=== PATIENT | female | born 1950 | race Hispanic/Latino ===

== ENCOUNTER 2017-12-10 11:32 | Inpatient (IN) | payer MEDICARE, BC ==
[2017-12-10] MEDS ORDERED: Aspirin 325 mg EC Tablets PO STA (12:09)
[2017-12-10] MEDS ORDERED: Sodium Chloride 0.9% 250 ML IV STA (12:11)
[2017-12-10] MEDS ORDERED: Azithromycin 500MG/NS 250ml 500 MG/250 ML BAG IVPB STA (12:12)
[2017-12-10] MEDS ORDERED: cefTRIAXone 1 gm 1 GM/100 ML BAG IVPB STA (12:12)
--- NOTE | 2017-12-10 12:15 | ED PDOC ---
Arrival/HPI - General Chief Complaint: GI Problem Time Seen by Provider: 12/10/17 12:09 Historian: Patient - History of Present Illness Narrative History of Present Illness (Text): 12/10/17 12:11 pt p/w ~ 2 days onset of subjective fever, chills/mild sweats, + persistent coughing, non-productive, generalized malaise/fatigue worse with exertion; + very shortness of breath; pt also noted b/l leg swelling over the last few days ; pt states she felt overall much worse today; pt just [place] cruise [place]; pt thought she was just dehydrated and also excessive walking around the big ship; pt states no fall/trauma/sick contact; pt states no cp/palpitations, no abd pain, no appetite, some nausea, no vomiting, decr urination, no bowel changes, numbness/tingling; pt denied LOC; + dizziness/ lightheadedness; pt is here for further eval; pt's without other complaints. PCP: out of state/from [facility] multiple co-morbidities - renal failure/insufficiency; Hypertension/CHOL/ diabetes/cardiac surgery Time/Duration: < week (2-3 days) Symptom Onset: Sudden Symptom Course: Worsening Quality: Aching, Cramping, Throbbing Severity Level: Severe Activities at Onset: Other (was on [employer]) Context: Other (just [place] [employer] [place] Past Medical History - Provider Review Nursing Documentation Reviewed: Yes - Travel History Have you recently traveled outside [place] w/in the past 3 mons?: No - Past History Past History: Non-Contributing - Infectious Disease Hx of Infectious Diseases: None - Reproductive Menopause: Yes Currently : No - Cardiac Hx Cardiac Disorders: Yes Hx Hypertension: Yes Other/Comment: HEART TRANSPLANT - Pulmonary Hx Respiratory Disorders: No - Neurological Hx Neurological Disorder: No - HEENT Hx HEENT Disorder: No - Renal Hx Renal Disorder: Yes Hx Renal Failure: Yes - Endocrine/Metabolic Hx Endocrine Disorders: Yes Hx Diabetes Mellitus Type 2: Yes Other/Comment: THYROID DISEASE - Hematological/Oncological Hx Blood Disorders: No - Integumentary Hx Dermatological Disorder: No - Musculoskeletal/Rheumatological Hx Musculoskeletal Disorders: Yes Hx Unsteady Gait: Yes - Gastrointestinal Hx Gastrointestinal Disorders: No - Genitourinary/Gynecological Hx Genitourinary Disorders: No - Psychiatric Hx Psychophysiologic Disorder: Yes Hx Depression: Yes Hx Substance Use: No - Surgical History Other/Comment: HEART TRANSPLANT Family/Social History - Physician Review Nursing Documentation Reviewed: Yes Family/Social History: No Known Family HX Smoking Status: Former Smoker Hx Alcohol Use: No Hx Substance Use: No Hx Substance Use Treatment: No Allergies/Home Meds Allergies/Adverse Reactions: Allergies No Known Allergies Allergy (Verified 12/10/17 18:29) Home Medications: Home Meds Medication Instructions Recorded Confirmed Apixaban [Eliquis] 2.5 mg PO BID 12/10/17 12/10/17 Bumetanide [Bumex] 1 mg PO BID 12/10/17 12/10/17 Cyclosporine, Modified 50 mg PO BID 12/10/17 12/10/17 [Cyclosporine] Gabapentin [Neurontin] 300 mg PO DAILY 12/10/17 12/10/17 Insulin Detemir [Levemir] 12 units SC HS 12/10/17 12/10/17 Metoprolol Tartrate [Lopressor] 100 mg PO Q12 12/10/17 12/10/17 Prednisone [Akanksha] 5 mg PO DAILY 12/10/17 12/10/17 Sirolimus [Rapamune] 1 mg PO DAILY 12/10/17 12/10/17 Zolpidem [Ambien] 5 mg PO HS 12/10/17 12/10/17 metOLazone [Zaroxolyn] 5 mg PO MWF 12/10/17 12/10/17 Review of Systems - Review of Systems Constitutional: Fatigue. absent: Fevers Eyes: Normal ENT: Normal Respiratory: SOB, Cough, Wheezing. absent: Sputum Cardiovascular: JACKSON. absent: Chest Pain, Syncope Gastrointestinal: Nausea, Appetite Changes. absent: Abdominal Pain, Vomiting Genitourinary Female: Normal Musculoskeletal: Normal Skin: Normal Neurological: Dizziness Endocrine: Diaphoresis. absent: Polyuria Hemo/Lymphatic: Normal Psychiatric: Normal Physical Exam - Physical Exam Narrative Physical Exam (Text): 12/10/17 12:13 General: alert/awake, GCS = 15, oriented x 3, resting in bed, uncomfortable, cooperative, interactive; mild distress due to body pain/aches Head: NC/AT; mild bi-temporal wasting EYE: PERRLA, EOMI, sclera anicteric, no nystagmus, no photophobia; visual field intact b/l Facial: WNL Oral: uvula/tongue are midline, no exudate/lesions, no drooling/stridor, no dysphonia; fair dentitions; DRY oral mucosa NECK: intact ROM, no midline tenderness, no nuchal rigidity, no meningeal signs ; no step off Chest: coarse breath sounds/bibasiliar rales/rhonchi, faint wheezing b/l, + tachypenia, no accessory muscle use noted; no belly retractions noted Cardiac: +S1, +S2, no m/r/r, + tachycardia Abdominal: +BS, soft/nd/nt, well nourished patient; no masses/rebound/guarding/ rigidity; no horn's sign, no mcburney's point tenderness Extremities: intact ROM, strength 5/5 grossly intact in all limbs, neurovasc intact b/l; reflex +2/2; + 1-2/5 pitting edema/swelling b/l up to proximal b/l knee; no Regina's sign b/l BACK: no step off, no midline tenderness, NO crepitus, no gross deformities noted; Intact ROM SKIN: cap refill ~ 1 sec, no ulcerations, no petechiae, no rashes; no gross pallor NEURO: CNII-XII WNL, no facial asymmetries, no slurr speech, oriented x 3 NIH stroke scale ~ 0 Psych: normal insight, flat/depressed affect; follows command with ease Vital Signs Reviewed: Yes Vital Signs Temp Pulse Resp BP Pulse Ox 12/10/17 17:01 105 H 19 112/53 L 98 12/10/17 15:35 125 H 112/53 L 18 15:34 125 H 112/53 L 12/10/17 14:43 100 H 18 104/51 L 98 12/10/17 13:33 117 H 18 141/78 99 18 12:26 145/81 12/10/17 11:55 99.4 F 112 H 18 145/81 99 12/10/17 11:37 99.4 F 112 H 20 145/81 96 Temperature: Afebrile Blood Pressure: Hypertensive Pulse: Tachycardic Respiratory Rate: Normal Appearance: Positive for: Well-Appearing, Ill-Appearing, Uncomfortable. No: Non -Toxic, Comfortable, Unkept Pain Distress: Mild Mental Status: Positive for: Alert and Oriented X 3 - Systems Exam Head: Present: Atraumatic, Normocephalic Medical Decision Making ED Course and Treatment: 12/10/17 12:10 Impression: fever/coughing/weakness, body pain, worsening leg swelling i have consider all the differential diagnosis regarding pt's chief medical complaints/clinical findings, including but are not limited to: r/o infection, ? cardiopulm pathology A/P: fever/coughing/weakness/body pain, leg swelling - labs - iv - xray - acs eval - u/s - cultures - abx - supportive care - observe/reevaluation 1300 pt is currently comfortable pt is awaiting diagnostic results 12/10/17 13:[address] Abraham, drilling contractor medical service, would like ICU consult, and to consult ID, agrees with admission 12/10/17 13:[address] Healy ICU attending, who has been made aware of patient's condition and will see patient at bedside. 1400 because patient is from [employer] will contact Dr Carvalho and cancel admission with Dr Abraham 12/10/17 14:37 Dr. Healy evaluated patient at bedside, will accept patient to the ICU [address] Carvalho, made aware, agrees with admission, would like to consult dr Bazzi/dr carbajal/wilner 1530 Dr Abraham made aware of the cancelled admission under her service pt continues to feel weak and malaise pt is made aware of her medical results agrees with admission Re-evaluation Time: 13:36 Reassessment Condition: Improving,but remains with symptoms - Critical Care Critical Care Minutes: 45 minutes Critical Care Time: Excluding Proc Time Narrative Critical Care (Text): 12/10/17 15:33 critical care time: 45min, excluding procedure time, excluding time teaching residents/students/mid-level providers; including initial eval/diagnosis, diagnostic interpretation, re-eval, consultations, final disposition - Lab Interpretations Lab Results: 12/10/17 12:30 12/10/17 12:30 Lab Results 12/10/17 13:42: POC Glucose (mg/dL) 372 H 12/10/17 12:30: Sodium 142, Chloride 100, Potassium 3.2 L, Carbon Dioxide 27, Anion Gap 18, BUN 76 H, Creatinine 1.8 H, Est GFR ( Amer) 34, Est GFR ( Non-Af Amer) 28, Random Glucose 430 H*, Calcium 9.0, Magnesium 2.2, Total Bilirubin 1.5 H, AST 20, ALT 30, Alkaline Phosphatase 109, Lactate Dehydrogenase 473, Total Creatine Kinase 59, Troponin I 0.09, NT-Pro-B Natriuret Pep 89127 H, Total Protein 6.6, Albumin 3.7, Globulin 2.9, Albumin/ Globulin Ratio 1.3 12/10/17 12:30: pO2 38, VBG pH 7.35, VBG pCO2 50.0, VBG HCO3 27.6, VBG Total CO2 29.1 H, VBG O2 Sat (Calc) 77.8 H, VBG Base Excess 1.2, VBG Potassium 3.2 L, Sodium 139.0, Chloride 102.0, Glucose 458 H*, Lactate 1.7, FiO2 21.0, Venous Blood Potassium 3.2 L 12/10/17 12:30: PT 12.9 H, INR 1.12 H, APTT 36.8 H 12/10/17 12:30: WBC 14.9 H, RBC 4.47, Hgb 12.7, Hct 38.2, MCV 85.5, MCH 28.4, MCHC 33.2, RDW 14.2, Plt Count 291, MPV 9.4, Gran % 77.9 H, Lymph % (Auto) 16.5 L, [place] % (Auto) 4.9, Eos % (Auto) 0.5 L, Baso % (Auto) 0.2, Gran # 11.61 H, Lymph # (Auto) 2.5, [place] # (Auto) 0.7 H, Eos # (Auto) 0.1, Baso # (Auto) 0.03 I have reviewed the lab results: Yes Interpretation: Abnormal lab values (elevated GLUC, lactic acid, bun/creat, elevated WBCs) - RAD Interpretation Narrative RAD Interpretations (Text): 12/10/17 13:29 PRELIM U/S lower ext: NO DVT b/l 12/10/17 1400 chest: right sided pacemaker, pulm vasc congestion, sternotomy, blunting to right costrophrenic angle, cardiomeagly, ABNL xray HISTORY: fever/cough, on cruise ship, not feeling well COMPARISON: No prior. TECHNIQUE: Chest PA and lateral FINDINGS: LUNGS: Mild vascular congestive changes with mild bibasilar atelectasis and or infiltrates and small effusions. PLEURA: As above No pneumothorax apparent. CARDIOVASCULAR: Cardiomegaly. Sternotomy wires the again noted. Disconnected left-sided pacemaker leads. There is a bipolar right-sided pacemaker -defibrillator. Normal. OSSEOUS STRUCTURES: No significant abnormalities. VISUALIZED UPPER ABDOMEN: Normal. OTHER FINDINGS: None. IMPRESSION: Mild vascular congestive changes with mild bibasilar atelectasis and or infiltrates and small effusions. Radiology Orders: 12/10/17 12:09 CHEST TWO VIEWS (PA/LAT) [RAD] Stat DUPLEX LOWER EXTRM VEIN BILAT [US] Stat Color Strainer: Radiologist - EKG Interpretation EKG Interpretation (Text): 12/10/17 12:15 Sinus tach at 110 bpm, LAD, RBBB, left anterior fascicular block, inverted T In leads I/L, V1-2, + ectopy, no st changes, ABNL EKG; no old ekg to compare with 151 ekg: atrial fib at 120 BPM, LAD, RBBB, left anterior fascicular block, inverted T in leads I, R, L, V1-2, no st changes, ABNL EKG; no old ekg to compare with Interpreted by ED Physician: Yes Type: 12 lead EKG Comparison: No previous EKG avail. - Medication Orders Current Medication Orders: Albuterol/Ipratropium (Duoneb 3 Mg/0.5 Mg (3 Ml) Ud) 3 ml IH Q6H [facility] Last Admin: 12/10/17 15:37 Dose: 3 ml Apixaban (Eliquis) 5 mg PO BID [facility] PRN Reason: Protocol Last Admin: 12/10/17 18:29 Dose: 5 mg Cyclosporine (Sandimmune) 50 mg PO BID [facility] Last Admin: 12/10/17 18:28 Dose: 50 mg Furosemide (Lasix) 40 mg IVP Q12H [facility] Last Admin: 12/10/17 21:21 Dose: 40 mg MAR Blood Pressure Document 12/10/17 21:21 MPD (Rec: 12/10/17 21:21 MPD [id number]) Blood Pressure Blood Pressure (100/60-150/90) 107/71 IVP Administration Document 12/10/17 21:21 [facility] (Rec: 12/10/17 21:21 [id number] Charges for Administration # of IVP Administrations 1 Home Med (Home Med) 1 unit PO DAILY [facility] Insulin Human Regular 100 (units/ Sodium Chloride) 100 mls @ 2 mls/hr IV .Q24H PRN; Protocol; 2 UNITS/HR PRN Reason: TITRATE PER MD ORDER Last Titration: 12/10/17 23:00 Dose: 7 units/hr, 7 mls/hr Titration Intervention Document 12/10/17 23:00 [facility] (Rec: 12/10/17 23:22 [id number] Titration Intake Titration Intake 7 Cumulative Intake 23 Cumulative Intake (Rx) 23 Waste Amount 0 Container Volume 77 Titration Dosing Titration Dose 7 IV Rate 7 Intake/Decrease Increased Cumulative Dose 23 Ceftriaxone Sodium (Rocephin 1 Gram Ivpb) 1 gm in 100 mls @ 100 mls/hr IVPB DAILY [facility] PRN Reason: Protocol Azithromycin (Zithromax 500mg In Ns) 500 mg in 250 mls @ 167 mls/hr IVPB DAILY MONISHA PRN Reason: Protocol Methylprednisolone (Solu-Medrol) 40 mg IVP Q8H [facility] Last Admin: 12/10/17 21:53 Dose: 40 mg IVP Administration Document 12/10/17 21:53 [facility] (Rec: 12/10/17 21:53 [id number]) Charges for Administration # of IVP Administrations 1 Metoprolol Tartrate (Lopressor) 100 mg PO Q12H [facility] Last Admin: 12/10/17 15:34 Dose: Not Given Non-Admin Reason: BP Parameters Not Met MAR Pulse and Blood Pressure Document 12/10/17 15:34 EQ (Rec: 12/10/17 15:35 EQ [facility]) Pulse Pulse Rate (60-90) 125 Blood Pressure Blood Pressure (100/60-150/90) 112/53 Ondansetron HCl (Zofran Inj) 4 mg IVP Q6H PRN PRN Reason: Nausea/Vomiting Discontinued Medications Acetaminophen (Tylenol 325mg Tab) 650 mg PO STAT STA Stop: 12/10/17 12:12 Last Admin: 12/10/17 12:25 Dose: 650 mg MAR Pain/Vitals Document 12/10/17 12:25 EQ (Rec: 12/10/17 12:26 EQ [facility] [place]) Pain Reassessment Is This A Pain ReAssessment? No Sleep Is patient sleeping during reassessment? No Presence of Pain Presence of Pain Yes Albuterol/Ipratropium (Duoneb 3 Mg/0.5 Mg (3 Ml) Ud) 3 ml IH Q15M MONISHA Stop: 12/10/17 12:46 Last Admin: 12/10/17 13:40 Dose: 3 ml Aspirin (Ecotrin) 325 mg PO STAT STA Stop: 12/10/17 12:10 Last Admin: 12/10/17 12:27 Dose: 325 mg Cyclosporine (Sandimmune) 50 mg PO BID MONISHA Diltiazem HCl (Cardizem) 15 mg IVP STAT STA Stop: 12/10/17 15:26 Last Admin: 12/10/17 15:35 Dose: 15 mg IVP Administration Document 12/10/17 15:35 EQ (Rec: 12/10/17 15:35 EQ [facility] [place]) Charges for Administration # of IVP Administrations 1 MAR Pulse and Blood Pressure Document 12/10/17 15:35 EQ (Rec: 12/10/17 15:35 EQ [facility] [place]) Pulse Pulse Rate (60-90) 125 Blood Pressure Blood Pressure (100/60-150/90) 112/53 Furosemide (Lasix) 40 mg IVP STAT STA Stop: 12/10/17 12:10 Last Admin: 12/10/17 12:26 Dose: 40 mg MAR Blood Pressure Document 12/10/17 12:26 EQ (Rec: 12/10/17 12:26 EQ [facility] [place]) Blood Pressure Blood Pressure (100/60-150/90) 145/81 IVP Administration Document 12/10/17 12:26 EQ (Rec: 12/10/17 12:26 EQ [facility] [place]) Charges for Administration # of IVP Administrations 1 Sodium Chloride (Sodium Chloride 0.9%) 250 mls @ 999 mls/hr IV .Q16M STA Stop: 12/10/17 12:26 Last Admin: 12/10/17 12:29 Dose: 999 mls/hr eMAR Start Stop Document 12/10/17 12:29 EQ (Rec: 12/10/17 12:29 EQ [facility] [place]) Intravenous Solution Start Date 12/10/17 Start Time 12:29 Ceftriaxone Sodium (Rocephin 1 Gram Ivpb) 1 gm in 100 mls @ 200 mls/hr IVPB STAT STA PRN Reason: Protocol Stop: 12/10/17 12:41 Last Admin: 12/10/17 12:25 Dose: 200 mls/hr eMAR Start Stop Document 12/10/17 12:25 EQ (Rec: 12/10/17 12:25 EQ [facility] [place]) Intravenous Solution Start Date 12/10/17 Start Time 12:25 Azithromycin (Zithromax 500mg In Ns) 500 mg in 250 mls @ 167 mls/hr IVPB STAT STA PRN Reason: Protocol Stop: 12/10/17 13:41 Last Admin: 12/10/17 13:45 Dose: 167 mls/hr eMAR Start Stop Document 12/10/17 13:45 EQ (Rec: 12/10/17 13:45 EQ [facility] [place]) Intravenous Solution Start Date 12/10/17 Start Time 13:45 Potassium Chloride (Potassium Chloride 20 Meq/100 Ml) 20 meq in 100 mls @ 50 mls/hr IVPB ONCE ONE Stop: 12/10/17 16:47 Insulin Human Regular (Humulin R) 12 units IVP ONCE ONE Stop: 12/10/17 13:31 Last Admin: 12/10/17 13:44 Dose: 12 u MAR Blood Glucose Document 12/10/17 13:44 EQ (Rec: 12/10/17 13:44 EQ [facility] [place]) Blood Glucose Finger Stick Blood Glucose (70-120) 375 IVP Administration Document 12/10/17 13:44 EQ (Rec: 12/10/17 13:44 EQ [facility] [place]) Charges for Administration # of IVP Administrations 1 Methylprednisolone (Solu-Medrol) 125 mg IVP STAT STA Stop: 12/10/17 12:12 Last Admin: 12/10/17 12:27 Dose: 125 mg IVP Administration Document 12/10/17 12:27 EQ (Rec: 12/10/17 12:27 EQ [facility] [place]) Charges for Administration # of IVP Administrations 1 Pneumococcal Polyvalent Vaccine (Pneumovax 23 Vaccine) 0.5 ml IM .ONCE ONE Stop: 12/10/17 20:09 Potassium Chloride (K-Dur 20 Meq Er Tab) 40 meq PO STAT STA Stop: 12/10/17 13:33 Last Admin: 12/10/17 13:45 Dose: 40 meq Potassium Chloride (K-Dur 20 Meq Er Tab) 40 meq PO STAT STA Stop: 12/10/17 19:45 Last Admin: 12/10/17 20:09 Dose: 40 meq Potassium Chloride (K-Dur 20 Meq Er Tab) 40 meq PO STAT STA Stop: 12/10/17 21:53 Last Admin: 12/10/17 22:00 Dose: 40 meq Disposition/Present on Arrival - Present on Arrival Any Indicators Present on Arrival: No History of DVT/PE: No History of Uncontrolled Diabetes: No Urinary Catheter: No History of Decub. Ulcer: No History Surgical Site Infection Following: None - Disposition Have Diagnosis and Disposition been Completed?: Yes Diagnosis: Acute CHF, Uncontrolled diabetes mellitus with hyperglycemia, Bronchitis, Dehydration, At risk for sepsis Disposition: HOSPITALIZED Disposition Time: 13:36 Patient Plan: Admission, ICU Condition: FAIR
[2017-12-10] MEDS: Albuterol-Ipratrop 3 mg / 0.5 (3 ml) UD IH SCH ×5 (12:27→23:00)
[2017-12-10 13:02] LABS: VENOUS BLOOD GAS BASE EXCESS 1.2 mmol/L (0.0-2.0); VENOUS BLOOD GAS PO2 38 mm/Hg (30-55); VENOUS BLOOD PH 7.35 (7.32-7.43)
[2017-12-10 13:04] LABS: BASO # 0.03 K/mm3 (0.0-2.0); BASO % 0.2 % (0.0-3.0); EOS # 0.1 (0.0-0.7); EOS % 0.5 % (1.5-5.0); GRAN # 11.61 (1.4-6.5); GRAN % 77.9 % (50.0-68.0); HEMOGLOBIN 12.7 g/dL (12.0-16.0); LYMPH # 2.5 (1.2-3.4); LYMPH % 16.5 % (22.0-35.0); MEAN CELL VOLUME 85.5 fl (80.0-105.0); MEAN CORPUSCULAR HEMOGLOBIN 28.4 pg (25.0-35.0); MEAN CORPUSCULAR HGB CONC 33.2 g/dl (31.0-37.0); MEAN PLATELET VOLUME 9.4 fl (7.0-11.0); MONO # 0.7 (0.1-0.6); MONO % 4.9 % (1.0-6.0); RBC 4.47 10^6/uL (3.5-6.1); RED CELL DISTRIBUTION WIDTH 14.2 % (11.5-14.5); WHITE BLOOD COUNT 14.9 10^3/ul (4.5-11.0)
[2017-12-10 13:15] LABS: INR 1.12 (0.93-1.08); PARTIAL THROMBOPLASTIN TIME 36.8 Seconds (25.1-36.5); PROTHROMBIN TIME 12.9 SECONDS (9.4-12.5)
[2017-12-10 13:21] LABS: ALB/GLOB RATIO 1.3 (1.1-1.8); ALBUMIN 3.7 g/dL (3.0-4.8)
[2017-12-10 13:28] LABS: TROPONIN I 0.09 ng/mL
[2017-12-10] MEDS ORDERED: Insulin Regular 1 UNITS/0.01 ML ML IVP ONE (13:30)
[2017-12-10] MEDS ORDERED: Potassium Chloride 20 mEq ER Tab PO STA ×4 (13:32→21:52)
[2017-12-10] MEDS ORDERED: Insulin Regular 100 UNITS in Sodium Chloride 0.9% 99 ML IV PRN (14:27)
[2017-12-10] MEDS: MethylPREDNISolone 40 mg Vial IVP SCH ×2 (14:41→21:53)
[2017-12-10] MEDS ORDERED: Insulin Reg-MEDIUM-Coverage SC SCH (16:30)
[2017-12-10 16:38] LABS: URINE BILIRUBIN NEGATIVE (NEGATIVE); URINE BLOOD NEGATIVE (NEGATIVE); URINE GLUCOSE (UA) 500 mg/dL (NEGATIVE); URINE LEUKOCYTE ESTERASE NEGATIVE Leu/uL (NEGATIVE); URINE PROTEIN TRACE mg/dL (<30 mg/dL); URINE UROBILINOGEN 0.2 E.U./dL (<1 E.U./dL)
[2017-12-10 16:41] LABS: URINE APPEARANCE CLEAR (CLEAR); URINE COLOR LIGHT YELLOW (YELLOW)
[2017-12-10 16:47] LABS: URINE RBC NEGATIVE /hpf (0-2)
[2017-12-10 16:48] LABS: URINE BACTERIA FEW (NEG)
--- NOTE | 2017-12-10 17:23 | RAD ---
HISTORY: fever/cough, on cruise ship, not feeling well COMPARISON: No prior. TECHNIQUE: Chest PA and lateral FINDINGS: LUNGS: Mild vascular congestive changes with mild bibasilar atelectasis and or infiltrates and small effusions. PLEURA: As above No pneumothorax apparent. CARDIOVASCULAR: Cardiomegaly. Sternotomy wires the again noted. Disconnected left-sided pacemaker leads. There is a bipolar right-sided pacemaker -defibrillator. Normal. OSSEOUS STRUCTURES: No significant abnormalities. VISUALIZED UPPER ABDOMEN: Normal. OTHER FINDINGS: None. IMPRESSION: Mild vascular congestive changes with mild bibasilar atelectasis and or infiltrates and small effusions.
[2017-12-10] MEDS ORDERED: cycloSPORINE 100 mg/mL Oral Soln (50ml) PO SCH (18:00)
[2017-12-10 19:24] LABS: CALCIUM 8.9 mg/dL (8.4-10.5)
[2017-12-10] MEDS ORDERED: Home Med 1 UNIT PO SCH (20:00)
[2017-12-10 20:08] VITALS: BMI 23.6
[2017-12-10] MEDS ORDERED: Pneumococcal 23-Valent Vaccine IM ONE (20:08)
--- NOTE | 2017-12-11 01:43 | CON ---
DATE: HISTORY OF PRESENT ILLNESS: This is a 67-year-old lady with history of heart transplant, COPD, atherosclerotic heart disease, atrial fibrillation, on Eliquis, who was accompanying her son on the cruise ship when her son got sick and was diagnosed with diabetic ketoacidosis. While awaiting in the emergency room at his bedside, she noted increased shortness of breath, cough with greenish sputum production, and some chest tightness. Subsequently, she was evaluated by ER physician and was given nebulizer treatment. ICU was called for evaluation and further management. No nausea, no vomiting, no diarrhea, no constipation. No fever. Note, the patient is on cyclosporin, sirolimus and prednisone for immunosuppressive regimen. PAST MEDICAL HISTORY: CHF, status post heart transplant in 1993, on immunosuppressive regimen, hypothyroidism, hypertension, type 2 diabetes mellitus, vitamin D deficiency. ALLERGIES: NKDA. FAMILY HISTORY: Noncontributory. SOCIAL HISTORY: No alcohol or illicit drug abuse. The patient is ex-smoker. She used to smoke for more than 20 years before quit smoking also 20 years ago. REVIEW OF SYSTEMS: Review of 12-organ system other than mentioned in history of present illness is negative. PHYSICAL EXAMINATION: VITAL SIGNS: Heart rate 117, blood pressure 151/78, respiratory rate 18, oxygen saturation 99% on room air, temperature 99.4. HEENT: Head and neck atraumatic. LUNGS: Few crackles bilaterally. Few rales bilaterally. HEART: Irregular rate and rhythm. S1 and S2 distant. ABDOMEN: Soft, nontender, nondistended. MUSCULOSKELETAL: Trace to 1+ bilateral pedal and ankle edema. NEUROLOGICAL: The patient moves all extremities spontaneously. SKIN: Moist. PSYCHIATRIC: The patient is alert, awake and oriented. LABORATORY DATA: Sodium 142, potassium 3.2, chloride 100, carbon dioxide 27, BUN 76, creatinine 1.8, glucose 372, calcium 9, AST 20, ALT 30, total bilirubin 1.5. ProBNP 17,200. VBG showed glucose 458, lactate 1.7, pH 7.35. PTT 36.8. INR 1.12 (the patient is on Eliquis). WBC 14.9, hemoglobin 12.7, platelet count 291. Troponin 0.09. Chest x-ray showed some emphysematous changes, some chronic changes, mild vascular congestion, pacemaker. EKG showed what appears to be atrial fibrillation with right bundle-branch block and left anterior fascicular block. ASSESSMENT AND PLAN: This is a 67-year-old lady, who appears to develop chronic obstructive pulmonary disease exacerbation with component of congestive heart failure flare. At present time, we will proceed with steroid taper, antibiotics and bronchodilators/nebulizers. Blood culture, urine culture and procalcitonin will be sent as well. Urine for Legionella and streptococcal antigen will be sent as well. Even though the patient does not have clearly discernible infiltrate on chest x-ray, a chest x-ray is not sensitive enough for diagnosis of community-acquired pneumonia. In terms of congestive heart failure, the patient will be on conservative fluid and oxygen management, with Lasix 40 mg IV every 12 onboard. I will restart the patient on metoprolol, her home dose. I will restart the patient's immunosuppressive therapy and will give a call to nut sheller machine operator and oceanic sciences professor, who may adjust the dose according to their judgment and check appropriate levels. I will order echocardiogram. I have low suspicion for venous thromboembolism as patient is on Eliquis, and her INR and PTT are slightly elevated which suggest therapeutic range of her anticoagulation. I will be careful in K supplementation. I will start the patient on insulin drip until I have better idea as to how much insulin she would require before switching to long-acting subcutaneous formulation of insulin. I will continue target euvolemia, euglycemia, normothermia and oxygen saturation more than 90%. I will trend troponin and proBNP. Whether or not the patient would require afterload reduction will be deferred to cardiology service based on echo results. I spoke with nut sheller machine operator geothermal production manager at [facility], where her transplant care takes place-->they agreed with plan and ok-ed azithromycin in particular ccm time 40 min Bebo Murphy MD ASHLEY
--- NOTE | 2017-12-11 01:57 | HP ---
HISTORY OF PRESENT ILLNESS: I was called down to the emergency room to admit her. [place] the cruise ship. She is having gastrointestinal problems. It is a sudden onset. It is worsening, aching, cramping, throbbing. She is a 67-year-old female with aching, cramping, throbbing, severe on the cruise ship for a few days, just as it embarked in [place]. She has been in the hospital there and she is very uncomfortable. PAST MEDICAL HISTORY: She has a past medical history of heart transplant, hypertension, renal disorder, renal failure, diabetes, thyroid disease, unsteady gait, depression. SOCIAL HISTORY: Former smoker. No alcohol. No drugs. ALLERGIES: NO KNOWN DRUG ALLERGIES. MEDICATIONS: She does not remember her drugs. We will get Cardiology involved for their opinion. REVIEW OF SYSTEMS: She has lots of GI complaints, cramping, throbbing, aching. No chest pain. No shortness of breath. No extremity pains. PHYSICAL EXAMINATION: VITAL SIGNS: She has a 99.4 temp, 117 pulse, 18 respiratory rate, 141/78 blood pressure, 99% O2 sat on room air. GCS is 15, oriented x3. HEENT: Extraocular muscles intact. Pupils are equal and reactive to light. Throat is moist. NECK: Supple. HEART: Regular rate. Normal S1 and S2. LUNGS: Decreased breath sounds, but clear to auscultation bilaterally. ABDOMEN: Soft. Decreased bowel sounds. Mild discomfort, but no rebound or guarding. No CVA tenderness. EXTREMITIES: No edema. Fair range of motion. SKIN: For the most part is intact. No apparent rashes or ulcers appreciative. NEUROLOGIC: Cranial nerves II through XII grossly intact. She has normal insight. LABORATORY DATA: She had multiple tests. She has a 142 sodium; potassium 3.2, potassium will be replaced; BUN 76; creatinine 1.8. She will be on IV fluids and we will get Renal in to see her. Blood sugars are 372 and 430. We will get Endocrinology and insulin coverage. Magnesium 2.2. Total bili is 1.5, AST is 20, ALT is 30, alk phos is 109, lactate dehydrogenase is 473, troponin I is 0.09. BNP is 17,200. She might need a little bit of Lasix. She has a 7.35 pH, lactate is INR is 1.12. White count 14,900, high; 12.7 hemoglobin; 38.2 hematocrit with 291 platelets. The other tests are pending, extremity ultrasound, electrocardiogram, and EKG. IMPRESSION: She will have a consult with Infectious Disease, mechanical planner, Cardiology, Pulmonology, and Renal. She has multiple issues going on from the nausea, vomiting, congestive heart failure, diabetes, possible pneumonia. Navdeep Carvalho DO MTDD
[2017-12-11] MEDS ORDERED: Dextrose 5%/0.9% NS 1,000 ML IV SCH ×2 (02:00)
[2017-12-11] MEDS: Albuterol-Ipratrop 3 mg / 0.5 (3 ml) UD IH SCH ×5 (02:05→20:00)
[2017-12-11] MEDS ORDERED: Potassium Chloride 20 mEq ER Tab PO ONE (02:32)
[2017-12-11 05:55] LABS: HEMOGLOBIN 11.3 g/dL (12.0-16.0); MEAN CORPUSCULAR HEMOGLOBIN 27.8 pg (25.0-35.0); MEAN CORPUSCULAR HGB CONC 32.8 g/dl (31.0-37.0); MEAN PLATELET VOLUME 9.2 fl (7.0-11.0); RBC 4.06 10^6/uL (3.5-6.1); RED CELL DISTRIBUTION WIDTH 14.2 % (11.5-14.5); WHITE BLOOD COUNT 13.2 10^3/ul (4.5-11.0)
[2017-12-11] MEDS: MethylPREDNISolone 40 mg Vial IVP SCH ×3 (05:59→21:47)
[2017-12-11 06:08] LABS: ALB/GLOB RATIO 1.2 (1.1-1.8); ALBUMIN 3.4 g/dL (3.0-4.8)
[2017-12-11] MEDS ORDERED: Insulin Detemir 100 units/ml Vial (Levemir) SC STA (07:40)
[2017-12-11] MEDS: Insulin Reg-MEDIUM-Coverage SC SCH ×3 (08:06→21:40)
[2017-12-11] MEDS: cefTRIAXone 1 gm 1 GM/100 ML BAG IVPB SCH (09:01)
[2017-12-11] MEDS ORDERED: Azithromycin 500MG/NS 250ml 500 MG/250 ML BAG IVPB SCH (10:00)
--- NOTE | 2017-12-11 11:05 | CP.CCUPN ---
Addendum entered and electronically signed by Tianna Ness DO 12/11/17 14:06 : Card: regular S1 S2 Abd: soft ntnd +BS Ext: neg tiffany b/l. slight edema Neuro: [email or web address] Original Note: <Tianna Ness - Last Filed: 12/11/17 13:55> CCU Subjective - Physician Review Subjective (Free Text): 12/11/17 11:05 Gap close this AM, switch to levemir. CCU Objective - Vital Signs / Intake & Output Vital Signs (Last 4 hours): Vital Signs Temp Pulse Resp BP Pulse Ox 12/11/17 08:10 133 H 24 97 12/11/17 08:06 122/85 12/11/17 08:05 125 H 122/85 12/11/17 08:00 97.8 F 120 H 12 122/85 98 12/11/17 07:50 125 H 26 H 95 12/11/17 07:40 131 H 47 H 93 L 12/11/17 07:30 120 H 11 L 100 12/11/17 07:20 108 H 16 96 12/11/17 07:10 114 H 15 93 L Intake and Output (Last 8hrs): Intake & Output 12/10/17 12/11/17 12/11/17 22:59 06:59 14:59 Intake Total 266 373 Output Total 130 1900 Balance 136 -1527 Weight 125 lb Intake: IV 26 253 Right Antecubital 10 240 Oral 240 120 Output: Urine 130 1900 Urethral (Das) 130 1900 Stool 0 Other: Voiding Method Toilet - Physical Exam Head: Positive for: Atraumatic, Normocephalic Pupils: Positive for: PERRL Extroacular Muscles: Positive for: EOMI Conjunctiva: Positive for: Normal Mouth: Positive for: Moist Mucous Membranes Neck: Positive for: Normal Range of Motion. Negative for: JVD Respiratory/Chest: Positive for: Clear to Auscultation - Medications Active Medications: Active Medications Generic Name Dose Route Start Last Admin Trade Name Freq PRN Reason Stop Dose Admin Albuterol/Ipratropium 3 ml 12/10/17 15:00 12/11/17 07:20 Duoneb 3 Mg/0.5 Mg (3 Ml) Ud IH 3 ml Q6H MONISHA Administration Apixaban 5 mg 12/10/17 18:00 12/11/17 09:02 Eliquis PO 5 mg BID MONISHA Administration Protocol Aspirin 81 mg 12/11/17 10:00 12/11/17 09:02 Aspirin Chewable PO 81 mg DAILY MONISHA Administration Cyclosporine 50 mg 12/10/17 18:00 12/11/17 09:18 Sandimmune PO 50 mg BID MONISHA Administration Furosemide 40 mg 12/10/17 20:00 12/11/17 08:06 Lasix IVP 40 mg Q12H MONISHA Administration Home Med 1 unit 12/11/17 10:00 12/11/17 09:14 Home Med PO 1 unit DAILY MONISHA Administration Ceftriaxone Sodium 1 gm in 100 mls @ 100 mls/hr 12/11/17 10:00 12/11/17 09:01 Rocephin 1 Gram Ivpb IVPB 100 mls/hr DAILY MONISHA Administration Protocol Azithromycin 500 mg in 250 mls @ 167 mls/hr 12/11/17 10:00 12/11/17 09:00 Zithromax 500mg In Ns IVPB 167 mls/hr DAILY MONISHA Administration Protocol Insulin Human Regular 0 units 12/11/17 07:45 12/11/17 08:06 Humulin R Med SC 3 u Q4H MONISHA Administration Protocol Methylprednisolone 40 mg 12/10/17 14:30 12/11/17 05:59 Solu-Medrol IVP 40 mg Q8H MONISHA Administration Metoprolol Tartrate 100 mg 12/10/17 14:45 12/11/17 08:05 Lopressor PO 100 mg Q12H MONISHA Administration Ondansetron HCl 4 mg 12/10/17 15:15 Zofran Inj IVP Q6H PRN Nausea/Vomiting - Patient Studies Lab Studies: Lab Studies 12/11/17 12/11/17 12/11/17 Range/Units 09:17 08:05 07:50 WBC (4.5-11.0) 10^3/ul RBC (3.5-6.1) 10^6/uL Hgb (12.0-16.0) g/dL Hct (36.0-48.0) % MCV (80.0-105.0) fl MCH (25.0-35.0) pg MCHC (31.0-37.0) g/dl RDW (11.5-14.5) % Plt Count (120.0-450.0) 10^3/uL MPV (7.0-11.0) fl Sodium (132-148) mmol/L Potassium (3.6-5.0) mmol/L Chloride (98-107) mmol/L Carbon Dioxide (21-33) mmol/L Anion Gap (10-20) BUN (7-21) mg/dL Creatinine (0.7-1.2) mg/dl Est GFR ( Amer) Est GFR (Non-Af Amer) POC Glucose (mg/dL) 288 H 241 H (65-110) mg/dL Random Glucose (70-110) mg/dL Calcium (8.4-10.5) mg/dL Total Bilirubin (0.2-1.3) mg/dL AST (14-36) U/L ALT (7-56) U/L Alkaline Phosphatase (38-126) U/L NT-Pro-B Natriuret Pep 99777 H (0-450) pg/mL Total Protein (5.8-8.3) g/dL Albumin (3.0-4.8) g/dL Globulin gm/dL Albumin/Globulin Ratio (1.1-1.8) Urine Color (YELLOW) Urine Appearance (CLEAR) Urine pH (4.7-8.0) Ur Specific [place] (1.005-1.035) Urine Protein (<30 mg/dL) mg/dL Urine Glucose (UA) (NEGATIVE) mg/dL Urine Ketones (NEGATIVE) mg/dL Urine Blood (NEGATIVE) Urine Nitrate (NEGATIVE) Urine Bilirubin (NEGATIVE) Urine Urobilinogen (<1 E.U./dL) E.U./dL Ur Leukocyte Esterase (NEGATIVE) Shirley/uL Urine RBC (0-2) /hpf Urine WBC (0-6) /hpf Ur Epithelial Cells (0-5) /hpf Urine Bacteria (NEG) 12/11/17 12/11/17 12/11/17 Range/Units 06:54 06:20 05:33 WBC (4.5-11.0) 10^3/ul RBC (3.5-6.1) 10^6/uL Hgb (12.0-16.0) g/dL Hct (36.0-48.0) % MCV (80.0-105.0) fl MCH (25.0-35.0) pg MCHC (31.0-37.0) g/dl RDW (11.5-14.5) % Plt Count (120.0-450.0) 10^3/uL MPV (7.0-11.0) fl Sodium (132-148) mmol/L Potassium (3.6-5.0) mmol/L Chloride (98-107) mmol/L Carbon Dioxide (21-33) mmol/L Anion Gap (10-20) BUN (7-21) mg/dL Creatinine (0.7-1.2) mg/dl Est GFR ( Amer) Est GFR (Non-Af Amer) POC Glucose (mg/dL) 214 H 225 H 198 H (65-110) mg/dL Random Glucose (70-110) mg/dL Calcium (8.4-10.5) mg/dL Total Bilirubin (0.2-1.3) mg/dL AST (14-36) U/L ALT (7-56) U/L Alkaline Phosphatase (38-126) U/L NT-Pro-B Natriuret Pep (0-450) pg/mL Total Protein (5.8-8.3) g/dL Albumin (3.0-4.8) g/dL Globulin gm/dL Albumin/Globulin Ratio (1.1-1.8) Urine Color (YELLOW) Urine Appearance (CLEAR) Urine pH (4.7-8.0) Ur Specific [place] (1.005-1.035) Urine Protein (<30 mg/dL) mg/dL Urine Glucose (UA) (NEGATIVE) mg/dL Urine Ketones (NEGATIVE) mg/dL Urine Blood (NEGATIVE) Urine Nitrate (NEGATIVE) Urine Bilirubin (NEGATIVE) Urine Urobilinogen (<1 E.U./dL) E.U./dL Ur Leukocyte Esterase (NEGATIVE) Shirley/uL Urine RBC (0-2) /hpf Urine WBC (0-6) /hpf Ur Epithelial Cells (0-5) /hpf Urine Bacteria (NEG) 12/11/17 12/11/17 12/11/17 Range/Units 05:30 05:30 04:13 WBC 13.2 H (4.5-11.0) 10^3/ul RBC 4.06 (3.5-6.1) 10^6/uL Hgb 11.3 L (12.0-16.0) g/dL Hct 34.5 L (36.0-48.0) % MCV 85.0 (80.0-105.0) fl MCH 27.8 (25.0-35.0) pg MCHC 32.8 (31.0-37.0) g/dl RDW 14.2 (11.5-14.5) % Plt Count 231 (120.0-450.0) 10^3/uL MPV 9.2 (7.0-11.0) fl Sodium 145 (132-148) mmol/L Potassium 4.1 (3.6-5.0) mmol/L Chloride 105 (98-107) mmol/L Carbon Dioxide 27 (21-33) mmol/L Anion Gap 16 (10-20) BUN 78 H (7-21) mg/dL Creatinine 1.9 H (0.7-1.2) mg/dl Est GFR ( Amer) 32 Est GFR (Non-Af Amer) 26 POC Glucose (mg/dL) 186 H (65-110) mg/dL Random Glucose 218 H (70-110) mg/dL Calcium 9.0 (8.4-10.5) mg/dL Total Bilirubin 0.7 (0.2-1.3) mg/dL AST 13 L D (14-36) U/L ALT 23 (7-56) U/L Alkaline Phosphatase 88 (38-126) U/L NT-Pro-B Natriuret Pep (0-450) pg/mL Total Protein 6.2 (5.8-8.3) g/dL Albumin 3.4 (3.0-4.8) g/dL Globulin 2.9 gm/dL Albumin/Globulin Ratio 1.2 (1.1-1.8) Urine Color (YELLOW) Urine Appearance (CLEAR) Urine pH (4.7-8.0) Ur Specific [place] (1.005-1.035) Urine Protein (<30 mg/dL) mg/dL Urine Glucose (UA) (NEGATIVE) mg/dL Urine Ketones (NEGATIVE) mg/dL Urine Blood (NEGATIVE) Urine Nitrate (NEGATIVE) Urine Bilirubin (NEGATIVE) Urine Urobilinogen (<1 E.U./dL) E.U./dL Ur Leukocyte Esterase (NEGATIVE) Shirley/uL Urine RBC (0-2) /hpf Urine WBC (0-6) /hpf Ur Epithelial Cells (0-5) /hpf Urine Bacteria (NEG) 12/11/17 12/11/17 12/11/17 Range/Units 03:01 02:21 01:07 WBC (4.5-11.0) 10^3/ul RBC (3.5-6.1) 10^6/uL Hgb (12.0-16.0) g/dL Hct (36.0-48.0) % MCV (80.0-105.0) fl MCH (25.0-35.0) pg MCHC (31.0-37.0) g/dl RDW (11.5-14.5) % Plt Count (120.0-450.0) 10^3/uL MPV (7.0-11.0) fl Sodium (132-148) mmol/L Potassium (3.6-5.0) mmol/L Chloride (98-107) mmol/L Carbon Dioxide (21-33) mmol/L Anion Gap (10-20) BUN (7-21) mg/dL Creatinine (0.7-1.2) mg/dl Est GFR ( Amer) Est GFR (Non-Af Amer) POC Glucose (mg/dL) 194 H 167 H 230 H (65-110) mg/dL Random Glucose (70-110) mg/dL Calcium (8.4-10.5) mg/dL Total Bilirubin (0.2-1.3) mg/dL AST (14-36) U/L ALT (7-56) U/L Alkaline Phosphatase (38-126) U/L NT-Pro-B Natriuret Pep (0-450) pg/mL Total Protein (5.8-8.3) g/dL Albumin (3.0-4.8) g/dL Globulin gm/dL Albumin/Globulin Ratio (1.1-1.8) Urine Color (YELLOW) Urine Appearance (CLEAR) Urine pH (4.7-8.0) Ur Specific [place] (1.005-1.035) Urine Protein (<30 mg/dL) mg/dL Urine Glucose (UA) (NEGATIVE) mg/dL Urine Ketones (NEGATIVE) mg/dL Urine Blood (NEGATIVE) Urine Nitrate (NEGATIVE) Urine Bilirubin (NEGATIVE) Urine Urobilinogen (<1 E.U./dL) E.U./dL Ur Leukocyte Esterase (NEGATIVE) Shirley/uL Urine RBC (0-2) /hpf Urine WBC (0-6) /hpf Ur Epithelial Cells (0-5) /hpf Urine Bacteria (NEG) 12/11/17 12/10/17 12/10/17 Range/Units 00:25 23:59 23:11 WBC (4.5-11.0) 10^3/ul RBC (3.5-6.1) 10^6/uL Hgb (12.0-16.0) g/dL Hct (36.0-48.0) % MCV (80.0-105.0) fl MCH (25.0-35.0) pg MCHC (31.0-37.0) g/dl RDW (11.5-14.5) % Plt Count (120.0-450.0) 10^3/uL MPV (7.0-11.0) fl Sodium 144 (132-148) mmol/L Potassium 3.0 L (3.6-5.0) mmol/L Chloride 103 (98-107) mmol/L Carbon Dioxide 27 (21-33) mmol/L Anion Gap 17 (10-20) BUN 76 H (7-21) mg/dL Creatinine 2.0 H (0.7-1.2) mg/dl Est GFR ( Amer) 30 Est GFR (Non-Af Amer) 25 POC Glucose (mg/dL) 237 H 305 H (65-110) mg/dL Random Glucose 245 H (70-110) mg/dL Calcium 9.0 (8.4-10.5) mg/dL Total Bilirubin (0.2-1.3) mg/dL AST (14-36) U/L ALT (7-56) U/L Alkaline Phosphatase (38-126) U/L NT-Pro-B Natriuret Pep (0-450) pg/mL Total Protein (5.8-8.3) g/dL Albumin (3.0-4.8) g/dL Globulin gm/dL Albumin/Globulin Ratio (1.1-1.8) Urine Color (YELLOW) Urine Appearance (CLEAR) Urine pH (4.7-8.0) Ur Specific [place] (1.005-1.035) Urine Protein (<30 mg/dL) mg/dL Urine Glucose (UA) (NEGATIVE) mg/dL Urine Ketones (NEGATIVE) mg/dL Urine Blood (NEGATIVE) Urine Nitrate (NEGATIVE) Urine Bilirubin (NEGATIVE) Urine Urobilinogen (<1 E.U./dL) E.U./dL Ur Leukocyte Esterase (NEGATIVE) Shirley/uL Urine RBC (0-2) /hpf Urine WBC (0-6) /hpf Ur Epithelial Cells (0-5) /hpf Urine Bacteria (NEG) 12/10/17 12/10/17 12/10/17 Range/Units 22:22 21:03 20:33 WBC (4.5-11.0) 10^3/ul RBC (3.5-6.1) 10^6/uL Hgb (12.0-16.0) g/dL Hct (36.0-48.0) % MCV (80.0-105.0) fl MCH (25.0-35.0) pg MCHC (31.0-37.0) g/dl RDW (11.5-14.5) % Plt Count (120.0-450.0) 10^3/uL MPV (7.0-11.0) fl Sodium (132-148) mmol/L Potassium (3.6-5.0) mmol/L Chloride (98-107) mmol/L Carbon Dioxide (21-33) mmol/L Anion Gap (10-20) BUN (7-21) mg/dL Creatinine (0.7-1.2) mg/dl Est GFR ( Amer) Est GFR (Non-Af Amer) POC Glucose (mg/dL) 257 H 275 H 280 H (65-110) mg/dL Random Glucose (70-110) mg/dL Calcium (8.4-10.5) mg/dL Total Bilirubin (0.2-1.3) mg/dL AST (14-36) U/L ALT (7-56) U/L Alkaline Phosphatase (38-126) U/L NT-Pro-B Natriuret Pep (0-450) pg/mL Total Protein (5.8-8.3) g/dL Albumin (3.0-4.8) g/dL Globulin gm/dL Albumin/Globulin Ratio (1.1-1.8) Urine Color (YELLOW) Urine Appearance (CLEAR) Urine pH (4.7-8.0) Ur Specific [place] (1.005-1.035) Urine Protein (<30 mg/dL) mg/dL Urine Glucose (UA) (NEGATIVE) mg/dL Urine Ketones (NEGATIVE) mg/dL Urine Blood (NEGATIVE) Urine Nitrate (NEGATIVE) Urine Bilirubin (NEGATIVE) Urine Urobilinogen (<1 E.U./dL) E.U./dL Ur Leukocyte Esterase (NEGATIVE) Shirley/uL Urine RBC (0-2) /hpf Urine WBC (0-6) /hpf Ur Epithelial Cells (0-5) /hpf Urine Bacteria (NEG) 12/10/17 12/10/17 12/10/17 Range/Units 19:37 19:05 18:13 WBC (4.5-11.0) 10^3/ul RBC (3.5-6.1) 10^6/uL Hgb (12.0-16.0) g/dL Hct (36.0-48.0) % MCV (80.0-105.0) fl MCH (25.0-35.0) pg MCHC (31.0-37.0) g/dl RDW (11.5-14.5) % Plt Count (120.0-450.0) 10^3/uL MPV (7.0-11.0) fl Sodium 144 (132-148) mmol/L Potassium 2.7 L* (3.6-5.0) mmol/L Chloride 103 (98-107) mmol/L Carbon Dioxide 23 (21-33) mmol/L Anion Gap 21 H (10-20) BUN 71 H (7-21) mg/dL Creatinine 1.9 H (0.7-1.2) mg/dl Est GFR ( Amer) 32 Est GFR (Non-Af Amer) 26 POC Glucose (mg/dL) 270 H 263 H (65-110) mg/dL Random Glucose 286 H (70-110) mg/dL Calcium 8.9 (8.4-10.5) mg/dL Total Bilirubin (0.2-1.3) mg/dL AST (14-36) U/L ALT (7-56) U/L Alkaline Phosphatase (38-126) U/L NT-Pro-B Natriuret Pep (0-450) pg/mL Total Protein (5.8-8.3) g/dL Albumin (3.0-4.8) g/dL Globulin gm/dL Albumin/Globulin Ratio (1.1-1.8) Urine Color (YELLOW) Urine Appearance (CLEAR) Urine pH (4.7-8.0) Ur Specific [place] (1.005-1.035) Urine Protein (<30 mg/dL) mg/dL Urine Glucose (UA) (NEGATIVE) mg/dL Urine Ketones (NEGATIVE) mg/dL Urine Blood (NEGATIVE) Urine Nitrate (NEGATIVE) Urine Bilirubin (NEGATIVE) Urine Urobilinogen (<1 E.U./dL) E.U./dL Ur Leukocyte Esterase (NEGATIVE) Shirley/uL Urine RBC (0-2) /hpf Urine WBC (0-6) /hpf Ur Epithelial Cells (0-5) /hpf Urine Bacteria (NEG) 12/10/17 12/10/17 12/10/17 Range/Units 15:55 15:39 14:35 WBC (4.5-11.0) 10^3/ul RBC (3.5-6.1) 10^6/uL Hgb (12.0-16.0) g/dL Hct (36.0-48.0) % MCV (80.0-105.0) fl MCH (25.0-35.0) pg MCHC (31.0-37.0) g/dl RDW (11.5-14.5) % Plt Count (120.0-450.0) 10^3/uL MPV (7.0-11.0) fl Sodium (132-148) mmol/L Potassium (3.6-5.0) mmol/L Chloride (98-107) mmol/L Carbon Dioxide (21-33) mmol/L Anion Gap (10-20) BUN (7-21) mg/dL Creatinine (0.7-1.2) mg/dl Est GFR ( Amer) Est GFR (Non-Af Amer) POC Glucose (mg/dL) 295 H 311 H (65-110) mg/dL Random Glucose (70-110) mg/dL Calcium (8.4-10.5) mg/dL Total Bilirubin (0.2-1.3) mg/dL AST (14-36) U/L ALT (7-56) U/L Alkaline Phosphatase (38-126) U/L NT-Pro-B Natriuret Pep (0-450) pg/mL Total Protein (5.8-8.3) g/dL Albumin (3.0-4.8) g/dL Globulin gm/dL Albumin/Globulin Ratio (1.1-1.8) Urine Color Light yellow (YELLOW) Urine Appearance Clear (CLEAR) Urine pH 6.0 (4.7-8.0) Ur Specific [place] 1.010 (1.005-1.035) Urine Protein Trace H (<30 mg/dL) mg/dL Urine Glucose (UA) 500 H (NEGATIVE) mg/dL Urine Ketones Negative (NEGATIVE) mg/dL Urine Blood Negative (NEGATIVE) Urine Nitrate Negative (NEGATIVE) Urine Bilirubin Negative (NEGATIVE) Urine Urobilinogen 0.2 (<1 E.U./dL) E.U./dL Ur Leukocyte Esterase Negative (NEGATIVE) Shirley/uL Urine RBC Negative (0-2) /hpf Urine WBC 1 - 3 (0-6) /hpf Ur Epithelial Cells 1 - 3 (0-5) /hpf Urine Bacteria Few (NEG) Laboratory Results - last 24 hr 12/10/17 12/10/17 12/10/17 14:35 15:39 15:55 WBC RBC Hgb Hct MCV MCH MCHC RDW Plt Count MPV Sodium Potassium Chloride Carbon Dioxide Anion Gap BUN Creatinine Est GFR ( Amer) Est GFR (Non-Af Amer) POC Glucose (mg/dL) 311 H 295 H Random Glucose Calcium Total Bilirubin AST ALT Alkaline Phosphatase NT-Pro-B Natriuret Pep Total Protein Albumin Globulin Albumin/Globulin Ratio Urine Color Light yellow Urine Appearance Clear Urine pH 6.0 Ur Specific [place] 1.010 Urine Protein Trace H Urine Glucose (UA) 500 H Urine Ketones Negative Urine Blood Negative Urine Nitrate Negative Urine Bilirubin Negative Urine Urobilinogen 0.2 Ur Leukocyte Esterase Negative Urine RBC Negative Urine WBC 1 - 3 Ur Epithelial Cells 1 - 3 Urine Bacteria Few 12/10/17 12/10/17 12/10/17 18:13 19:05 19:37 WBC RBC Hgb Hct MCV MCH MCHC RDW Plt Count MPV Sodium 144 Potassium 2.7 L* Chloride 103 Carbon Dioxide 23 Anion Gap 21 H BUN 71 H Creatinine 1.9 H Est GFR ( Amer) 32 Est GFR (Non-Af Amer) 26 POC Glucose (mg/dL) 263 H 270 H Random Glucose 286 H Calcium 8.9 Total Bilirubin AST ALT Alkaline Phosphatase NT-Pro-B Natriuret Pep Total Protein Albumin Globulin Albumin/Globulin Ratio Urine Color Urine Appearance Urine pH Ur Specific [place] Urine Protein Urine Glucose (UA) Urine Ketones Urine Blood Urine Nitrate Urine Bilirubin Urine Urobilinogen Ur Leukocyte Esterase Urine RBC Urine WBC Ur Epithelial Cells Urine Bacteria 12/10/17 12/10/17 12/10/17 20:33 21:03 22:22 WBC RBC Hgb Hct MCV MCH MCHC RDW Plt Count MPV Sodium Potassium Chloride Carbon Dioxide Anion Gap BUN Creatinine Est GFR ( Amer) Est GFR (Non-Af Amer) POC Glucose (mg/dL) 280 H 275 H 257 H Random Glucose Calcium Total Bilirubin AST ALT Alkaline Phosphatase NT-Pro-B Natriuret Pep Total Protein Albumin Globulin Albumin/Globulin Ratio Urine Color Urine Appearance Urine pH Ur Specific [place] Urine Protein Urine Glucose (UA) Urine Ketones Urine Blood Urine Nitrate Urine Bilirubin Urine Urobilinogen Ur Leukocyte Esterase Urine RBC Urine WBC Ur Epithelial Cells Urine Bacteria 12/10/17 12/10/17 12/11/17 23:11 23:59 00:25 WBC RBC Hgb Hct MCV MCH MCHC RDW Plt Count MPV Sodium 144 Potassium 3.0 L Chloride 103 Carbon Dioxide 27 Anion Gap 17 BUN 76 H Creatinine 2.0 H Est GFR ( Amer) 30 Est GFR (Non-Af Amer) 25 POC Glucose (mg/dL) 305 H 237 H Random Glucose 245 H Calcium 9.0 Total Bilirubin AST ALT Alkaline Phosphatase NT-Pro-B Natriuret Pep Total Protein Albumin Globulin Albumin/Globulin Ratio Urine Color Urine Appearance Urine pH Ur Specific [place] Urine Protein Urine Glucose (UA) Urine Ketones Urine Blood Urine Nitrate Urine Bilirubin Urine Urobilinogen Ur Leukocyte Esterase Urine RBC Urine WBC Ur Epithelial Cells Urine Bacteria 12/11/17 12/11/17 12/11/17 01:07 02:21 03:01 WBC RBC Hgb Hct MCV MCH MCHC RDW Plt Count MPV Sodium Potassium Chloride Carbon Dioxide Anion Gap BUN Creatinine Est GFR ( Amer) Est GFR (Non-Af Amer) POC Glucose (mg/dL) 230 H 167 H 194 H Random Glucose Calcium Total Bilirubin AST ALT Alkaline Phosphatase NT-Pro-B Natriuret Pep Total Protein Albumin Globulin Albumin/Globulin Ratio Urine Color Urine Appearance Urine pH Ur Specific [place] Urine Protein Urine Glucose (UA) Urine Ketones Urine Blood Urine Nitrate Urine Bilirubin Urine Urobilinogen Ur Leukocyte Esterase Urine RBC Urine WBC Ur Epithelial Cells Urine Bacteria 12/11/17 12/11/17 12/11/17 04:13 05:30 05:30 WBC 13.2 H RBC 4.06 Hgb 11.3 L Hct 34.5 L MCV 85.0 MCH 27.8 MCHC 32.8 RDW 14.2 Plt Count 231 MPV 9.2 Sodium 145 Potassium 4.1 Chloride 105 Carbon Dioxide 27 Anion Gap 16 BUN 78 H Creatinine 1.9 H Est GFR ( Amer) 32 Est GFR (Non-Af Amer) 26 POC Glucose (mg/dL) 186 H Random Glucose 218 H Calcium 9.0 Total Bilirubin 0.7 AST 13 L D ALT 23 Alkaline Phosphatase 88 NT-Pro-B Natriuret Pep Total Protein 6.2 Albumin 3.4 Globulin 2.9 Albumin/Globulin Ratio 1.2 Urine Color Urine Appearance Urine pH Ur Specific [place] Urine Protein Urine Glucose (UA) Urine Ketones Urine Blood Urine Nitrate Urine Bilirubin Urine Urobilinogen Ur Leukocyte Esterase Urine RBC Urine WBC Ur Epithelial Cells Urine Bacteria 12/11/17 12/11/17 12/11/17 05:33 06:20 06:54 WBC RBC Hgb Hct MCV MCH MCHC RDW Plt Count MPV Sodium Potassium Chloride Carbon Dioxide Anion Gap BUN Creatinine Est GFR ( Amer) Est GFR (Non-Af Amer) POC Glucose (mg/dL) 198 H 225 H 214 H Random Glucose Calcium Total Bilirubin AST ALT Alkaline Phosphatase NT-Pro-B Natriuret Pep Total Protein Albumin Globulin Albumin/Globulin Ratio Urine Color Urine Appearance Urine pH Ur Specific [place] Urine Protein Urine Glucose (UA) Urine Ketones Urine Blood Urine Nitrate Urine Bilirubin Urine Urobilinogen Ur Leukocyte Esterase Urine RBC Urine WBC Ur Epithelial Cells Urine Bacteria 12/11/17 12/11/17 12/11/17 07:50 08:05 09:17 WBC RBC Hgb Hct MCV MCH MCHC RDW Plt Count MPV Sodium Potassium Chloride Carbon Dioxide Anion Gap BUN Creatinine Est GFR ( Amer) Est GFR (Non-Af Amer) POC Glucose (mg/dL) 241 H 288 H Random Glucose Calcium Total Bilirubin AST ALT Alkaline Phosphatase NT-Pro-B Natriuret Pep 21388 H Total Protein Albumin Globulin Albumin/Globulin Ratio Urine Color Urine Appearance Urine pH Ur Specific [place] Urine Protein Urine Glucose (UA) Urine Ketones Urine Blood Urine Nitrate Urine Bilirubin Urine Urobilinogen Ur Leukocyte Esterase Urine RBC Urine WBC Ur Epithelial Cells Urine Bacteria EKG/Cardiology Studies: Cardiology / EKG Studies 12/10/17 15:19 EKG [ELECTROCARDIOGRAM] Stat Comment: Reason For Exam: NAUSEA Fingerstick Blood Sugar Results: 201 Critical Care Progress Note - Nutrition Nutrition: Nutrition Category Date Time Status Consistent Carbohydrate [DIET] Diets 12/10/17 Dinner Ordered Assessment/Plan - Assessment and Plan (Free Text) Plan: Mrs Kang, 67 F, s/p Heart transplant with pacemakre on cyclosporin, sirolimbus , prednisone as immunosuppression, COPD, CAD, a-fib on Eliquis, [place] a cruise ship, got SOB at ED while accompanying son who had DKA. She had cough with green sputum, chest tightness. CXR shows emphysema changes, mild vascular congeston, pacemaker. DKA likely secondary to CHF/COPD exacerbation - resolved COPD exacerbation, Questionable pneumonia CAP CHF exacerbation Denerved heart - s/p CABG, pre-load dependent a-fib on Eliquis Chronic immunosuppressant - cyclosporin, sirolimbus, prednisone Watch adrenal insufficiency CKD 4 Neuro - AAOx3, goal nomothremia Pulm - steroid taper (40q8), abx, duoneb q6 Conservative O2/fluid management Card - On eliquis, renal dose ASA, lasix 40 IV q12, metoprolol 100q12 (home) Cardio consult Echo ___pending____ Trop 0.09, no chest pain, VSS BNP 18K --> 20K GI - tolerate breakfast, [place] 30 HS, ISSS, accu check achs. No night time levemir yet. Need to observe today to calculate. Primary team to manage - be careful in K supple. U/O 2000 Endo - s/p insulin gtt. Aim blood glucose 140-180 Heme - cyclosporin 50 bid, sirolimbus 1, prednisone 5 ID - BCx, UCx, procalc, Ulegion, Ustrep Azithromycin, ceftriazone PVX - eliquis, renal dose Watch adrenal insufficiency Dispo plan: transferred to [facility] for COPD exacerbation. texted dr Carvalho Consult: Raoul Morris, Jluis, Dominique Lam s/r/d/w Dr. Murphy <Bebo Murphy - Last Filed: 12/11/17 15:02> CCU Objective - Vital Signs / Intake & Output Vital Signs (Last 4 hours): Vital Signs Temp Pulse Resp BP Pulse Ox 12/11/17 11:46 97.9 F 12/11/17 11:15 110 H 12/11/17 11:11 94 H 18 112/62 95 12/11/17 11:05 99 H 29 H 90/58 L 97 12/11/17 11:01 98 H 17 89/51 L 99 12/11/17 11:00 97 H 14 99 Intake and Output (Last 8hrs): Intake & Output 12/10/17 12/11/17 12/11/17 22:59 06:59 14:59 Intake Total 266 373 800 Output Total 130 1900 400 Balance 136 -1527 400 Weight 125 lb Intake: IV 26 253 200 Right Antecubital 10 240 200 Oral 240 120 600 Output: Urine 130 1900 200 Urethral (Das) 130 1900 200 Stool 0 200 Other: Voiding Method Toilet # Bowel Movements 1 - Medications Active Medications: Active Medications Generic Name Dose Route Start Last Admin Trade Name Freq PRN Reason Stop Dose Admin Albuterol/Ipratropium 3 ml 12/10/17 15:00 12/11/17 13:27 Duoneb 3 Mg/0.5 Mg (3 Ml) Ud IH 3 ml Q6H MONISHA Administration Apixaban 2.5 mg 12/11/17 18:00 Eliquis PO BID MONISHA Aspirin 81 mg 12/11/17 10:00 12/11/17 09:02 Aspirin Chewable PO 81 mg DAILY MONISHA Administration Cyclosporine 50 mg 12/10/17 18:00 12/11/17 09:18 Sandimmune PO 50 mg BID MONISHA Administration Furosemide 40 mg 12/10/17 20:00 12/11/17 08:06 Lasix IVP 40 mg Q12H MONISHA Administration Guaifenesin 200 mg 12/11/17 14:44 Robitussin PO Q4H PRN Cough and congestion Home Med 1 unit 12/11/17 10:00 12/11/17 09:14 Home Med PO 1 unit DAILY MONISHA Administration Ceftriaxone Sodium 1 gm in 100 mls @ 100 mls/hr 12/11/17 10:00 12/11/17 09:01 Rocephin 1 Gram Ivpb IVPB 100 mls/hr DAILY MONISHA Administration Protocol Azithromycin 500 mg in 250 mls @ 167 mls/hr 12/11/17 10:00 12/11/17 09:00 Zithromax 500mg In Ns IVPB 167 mls/hr DAILY MONISHA Administration Protocol Insulin Human Regular 0 units 12/11/17 16:30 Humulin R Med SC ACHS MONISHA Protocol Methylprednisolone 40 mg 12/10/17 14:30 12/11/17 05:59 Solu-Medrol IVP 40 mg Q8H MONISHA Administration Metoprolol Tartrate 100 mg 12/10/17 14:45 12/11/17 08:05 Lopressor PO 100 mg Q12H MONISHA Administration Ondansetron HCl 4 mg 12/10/17 15:15 Zofran Inj IVP Q6H PRN Nausea/Vomiting - Patient Studies Lab Studies: Lab Studies 12/11/17 12/11/17 12/11/17 Range/Units 11:29 09:17 08:05 WBC (4.5-11.0) 10^3/ul RBC (3.5-6.1) 10^6/uL Hgb (12.0-16.0) g/dL Hct (36.0-48.0) % MCV (80.0-105.0) fl MCH (25.0-35.0) pg MCHC (31.0-37.0) g/dl RDW (11.5-14.5) % Plt Count (120.0-450.0) 10^3/uL MPV (7.0-11.0) fl Sodium (132-148) mmol/L Potassium (3.6-5.0) mmol/L Chloride (98-107) mmol/L Carbon Dioxide (21-33) mmol/L Anion Gap (10-20) BUN (7-21) mg/dL Creatinine (0.7-1.2) mg/dl Est GFR ( Amer) Est GFR (Non-Af Amer) POC Glucose (mg/dL) 334 H 288 H 241 H (65-110) mg/dL Random Glucose (70-110) mg/dL Calcium (8.4-10.5) mg/dL Total Bilirubin (0.2-1.3) mg/dL AST (14-36) U/L ALT (7-56) U/L Alkaline Phosphatase (38-126) U/L NT-Pro-B Natriuret Pep (0-450) pg/mL Total Protein (5.8-8.3) g/dL Albumin (3.0-4.8) g/dL Globulin gm/dL Albumin/Globulin Ratio (1.1-1.8) Procalcitonin (0.19-0.49) NG/ML Urine Color (YELLOW) Urine Appearance (CLEAR) Urine pH (4.7-8.0) Ur Specific [place] (1.005-1.035) Urine Protein (<30 mg/dL) mg/dL Urine Glucose (UA) (NEGATIVE) mg/dL Urine Ketones (NEGATIVE) mg/dL Urine Blood (NEGATIVE) Urine Nitrate (NEGATIVE) Urine Bilirubin (NEGATIVE) Urine Urobilinogen (<1 E.U./dL) E.U./dL Ur Leukocyte Esterase (NEGATIVE) Shirley/uL Urine RBC (0-2) /hpf Urine WBC (0-6) /hpf Ur Epithelial Cells (0-5) /hpf Urine Bacteria (NEG) 12/11/17 12/11/17 12/11/17 Range/Units 07:50 06:54 06:20 WBC (4.5-11.0) 10^3/ul RBC (3.5-6.1) 10^6/uL Hgb (12.0-16.0) g/dL Hct (36.0-48.0) % MCV (80.0-105.0) fl MCH (25.0-35.0) pg MCHC (31.0-37.0) g/dl RDW (11.5-14.5) % Plt Count (120.0-450.0) 10^3/uL MPV (7.0-11.0) fl Sodium (132-148) mmol/L Potassium (3.6-5.0) mmol/L Chloride (98-107) mmol/L Carbon Dioxide (21-33) mmol/L Anion Gap (10-20) BUN (7-21) mg/dL Creatinine (0.7-1.2) mg/dl Est GFR ( Amer) Est GFR (Non-Af Amer) POC Glucose (mg/dL) 214 H 225 H (65-110) mg/dL Random Glucose (70-110) mg/dL Calcium (8.4-10.5) mg/dL Total Bilirubin (0.2-1.3) mg/dL AST (14-36) U/L ALT (7-56) U/L Alkaline Phosphatase (38-126) U/L NT-Pro-B Natriuret Pep 62364 H (0-450) pg/mL Total Protein (5.8-8.3) g/dL Albumin (3.0-4.8) g/dL Globulin gm/dL Albumin/Globulin Ratio (1.1-1.8) Procalcitonin (0.19-0.49) NG/ML Urine Color (YELLOW) Urine Appearance (CLEAR) Urine pH (4.7-8.0) Ur Specific [place] (1.005-1.035) Urine Protein (<30 mg/dL) mg/dL Urine Glucose (UA) (NEGATIVE) mg/dL Urine Ketones (NEGATIVE) mg/dL Urine Blood (NEGATIVE) Urine Nitrate (NEGATIVE) Urine Bilirubin (NEGATIVE) Urine Urobilinogen (<1 E.U./dL) E.U./dL Ur Leukocyte Esterase (NEGATIVE) Shirley/uL Urine RBC (0-2) /hpf Urine WBC (0-6) /hpf Ur Epithelial Cells (0-5) /hpf Urine Bacteria (NEG) 12/11/17 12/11/17 12/11/17 Range/Units 06:00 05:33 05:30 WBC (4.5-11.0) 10^3/ul RBC (3.5-6.1) 10^6/uL Hgb (12.0-16.0) g/dL Hct (36.0-48.0) % MCV (80.0-105.0) fl MCH (25.0-35.0) pg MCHC (31.0-37.0) g/dl RDW (11.5-14.5) % Plt Count (120.0-450.0) 10^3/uL MPV (7.0-11.0) fl Sodium 145 (132-148) mmol/L Potassium 4.1 (3.6-5.0) mmol/L Chloride 105 (98-107) mmol/L Carbon Dioxide 27 (21-33) mmol/L Anion Gap 16 (10-20) BUN 78 H (7-21) mg/dL Creatinine 1.9 H (0.7-1.2) mg/dl Est GFR ( Amer) 32 Est GFR (Non-Af Amer) 26 POC Glucose (mg/dL) 198 H (65-110) mg/dL Random Glucose 218 H (70-110) mg/dL Calcium 9.0 (8.4-10.5) mg/dL Total Bilirubin 0.7 (0.2-1.3) mg/dL AST 13 L D (14-36) U/L ALT 23 (7-56) U/L Alkaline Phosphatase 88 (38-126) U/L NT-Pro-B Natriuret Pep (0-450) pg/mL Total Protein 6.2 (5.8-8.3) g/dL Albumin 3.4 (3.0-4.8) g/dL Globulin 2.9 gm/dL Albumin/Globulin Ratio 1.2 (1.1-1.8) Procalcitonin 0.19 (0.19-0.49) NG/ML Urine Color (YELLOW) Urine Appearance (CLEAR) Urine pH (4.7-8.0) Ur Specific [place] (1.005-1.035) Urine Protein (<30 mg/dL) mg/dL Urine Glucose (UA) (NEGATIVE) mg/dL Urine Ketones (NEGATIVE) mg/dL Urine Blood (NEGATIVE) Urine Nitrate (NEGATIVE) Urine Bilirubin (NEGATIVE) Urine Urobilinogen (<1 E.U./dL) E.U./dL Ur Leukocyte Esterase (NEGATIVE) Shirley/uL Urine RBC (0-2) /hpf Urine WBC (0-6) /hpf Ur Epithelial Cells (0-5) /hpf Urine Bacteria (NEG) 12/11/17 12/11/17 12/11/17 Range/Units 05:30 04:13 03:01 WBC 13.2 H (4.5-11.0) 10^3/ul RBC 4.06 (3.5-6.1) 10^6/uL Hgb 11.3 L (12.0-16.0) g/dL Hct 34.5 L (36.0-48.0) % MCV 85.0 (80.0-105.0) fl MCH 27.8 (25.0-35.0) pg MCHC 32.8 (31.0-37.0) g/dl RDW 14.2 (11.5-14.5) % Plt Count 231 (120.0-450.0) 10^3/uL MPV 9.2 (7.0-11.0) fl Sodium (132-148) mmol/L Potassium (3.6-5.0) mmol/L Chloride (98-107) mmol/L Carbon Dioxide (21-33) mmol/L Anion Gap (10-20) BUN (7-21) mg/dL Creatinine (0.7-1.2) mg/dl Est GFR ( Amer) Est GFR (Non-Af Amer) POC Glucose (mg/dL) 186 H 194 H (65-110) mg/dL Random Glucose (70-110) mg/dL Calcium (8.4-10.5) mg/dL Total Bilirubin (0.2-1.3) mg/dL AST (14-36) U/L ALT (7-56) U/L Alkaline Phosphatase (38-126) U/L NT-Pro-B Natriuret Pep (0-450) pg/mL Total Protein (5.8-8.3) g/dL Albumin (3.0-4.8) g/dL Globulin gm/dL Albumin/Globulin Ratio (1.1-1.8) Procalcitonin (0.19-0.49) NG/ML Urine Color (YELLOW) Urine Appearance (CLEAR) Urine pH (4.7-8.0) Ur Specific [place] (1.005-1.035) Urine Protein (<30 mg/dL) mg/dL Urine Glucose (UA) (NEGATIVE) mg/dL Urine Ketones (NEGATIVE) mg/dL Urine Blood (NEGATIVE) Urine Nitrate (NEGATIVE) Urine Bilirubin (NEGATIVE) Urine Urobilinogen (<1 E.U./dL) E.U./dL Ur Leukocyte Esterase (NEGATIVE) Shirley/uL Urine RBC (0-2) /hpf Urine WBC (0-6) /hpf Ur Epithelial Cells (0-5) /hpf Urine Bacteria (NEG) 12/11/17 12/11/17 12/11/17 Range/Units 02:21 01:07 00:25 WBC (4.5-11.0) 10^3/ul RBC (3.5-6.1) 10^6/uL Hgb (12.0-16.0) g/dL Hct (36.0-48.0) % MCV (80.0-105.0) fl MCH (25.0-35.0) pg MCHC (31.0-37.0) g/dl RDW (11.5-14.5) % Plt Count (120.0-450.0) 10^3/uL MPV (7.0-11.0) fl Sodium 144 (132-148) mmol/L Potassium 3.0 L (3.6-5.0) mmol/L Chloride 103 (98-107) mmol/L Carbon Dioxide 27 (21-33) mmol/L Anion Gap 17 (10-20) BUN 76 H (7-21) mg/dL Creatinine 2.0 H (0.7-1.2) mg/dl Est GFR ( Amer) 30 Est GFR (Non-Af Amer) 25 POC Glucose (mg/dL) 167 H 230 H (65-110) mg/dL Random Glucose 245 H (70-110) mg/dL Calcium 9.0 (8.4-10.5) mg/dL Total Bilirubin (0.2-1.3) mg/dL AST (14-36) U/L ALT (7-56) U/L Alkaline Phosphatase (38-126) U/L NT-Pro-B Natriuret Pep (0-450) pg/mL Total Protein (5.8-8.3) g/dL Albumin (3.0-4.8) g/dL Globulin gm/dL Albumin/Globulin Ratio (1.1-1.8) Procalcitonin (0.19-0.49) NG/ML Urine Color (YELLOW) Urine Appearance (CLEAR) Urine pH (4.7-8.0) Ur Specific [place] (1.005-1.035) Urine Protein (<30 mg/dL) mg/dL Urine Glucose (UA) (NEGATIVE) mg/dL Urine Ketones (NEGATIVE) mg/dL Urine Blood (NEGATIVE) Urine Nitrate (NEGATIVE) Urine Bilirubin (NEGATIVE) Urine Urobilinogen (<1 E.U./dL) E.U./dL Ur Leukocyte Esterase (NEGATIVE) Shirley/uL Urine RBC (0-2) /hpf Urine WBC (0-6) /hpf Ur Epithelial Cells (0-5) /hpf Urine Bacteria (NEG) 12/10/17 12/10/17 12/10/17 Range/Units 23:59 23:11 22:22 WBC (4.5-11.0) 10^3/ul RBC (3.5-6.1) 10^6/uL Hgb (12.0-16.0) g/dL Hct (36.0-48.0) % MCV (80.0-105.0) fl MCH (25.0-35.0) pg MCHC (31.0-37.0) g/dl RDW (11.5-14.5) % Plt Count (120.0-450.0) 10^3/uL MPV (7.0-11.0) fl Sodium (132-148) mmol/L Potassium (3.6-5.0) mmol/L Chloride (98-107) mmol/L Carbon Dioxide (21-33) mmol/L Anion Gap (10-20) BUN (7-21) mg/dL Creatinine (0.7-1.2) mg/dl Est GFR ( Amer) Est GFR (Non-Af Amer) POC Glucose (mg/dL) 237 H 305 H 257 H (65-110) mg/dL Random Glucose (70-110) mg/dL Calcium (8.4-10.5) mg/dL Total Bilirubin (0.2-1.3) mg/dL AST (14-36) U/L ALT (7-56) U/L Alkaline Phosphatase (38-126) U/L NT-Pro-B Natriuret Pep (0-450) pg/mL Total Protein (5.8-8.3) g/dL Albumin (3.0-4.8) g/dL Globulin gm/dL Albumin/Globulin Ratio (1.1-1.8) Procalcitonin (0.19-0.49) NG/ML Urine Color (YELLOW) Urine Appearance (CLEAR) Urine pH (4.7-8.0) Ur Specific [place] (1.005-1.035) Urine Protein (<30 mg/dL) mg/dL Urine Glucose (UA) (NEGATIVE) mg/dL Urine Ketones (NEGATIVE) mg/dL Urine Blood (NEGATIVE) Urine Nitrate (NEGATIVE) Urine Bilirubin (NEGATIVE) Urine Urobilinogen (<1 E.U./dL) E.U./dL Ur Leukocyte Esterase (NEGATIVE) Shirley/uL Urine RBC (0-2) /hpf Urine WBC (0-6) /hpf Ur Epithelial Cells (0-5) /hpf Urine Bacteria (NEG) 12/10/17 12/10/17 12/10/17 Range/Units 21:03 20:33 19:37 WBC (4.5-11.0) 10^3/ul RBC (3.5-6.1) 10^6/uL Hgb (12.0-16.0) g/dL Hct (36.0-48.0) % MCV (80.0-105.0) fl MCH (25.0-35.0) pg MCHC (31.0-37.0) g/dl RDW (11.5-14.5) % Plt Count (120.0-450.0) 10^3/uL MPV (7.0-11.0) fl Sodium (132-148) mmol/L Potassium (3.6-5.0) mmol/L Chloride (98-107) mmol/L Carbon Dioxide (21-33) mmol/L Anion Gap (10-20) BUN (7-21) mg/dL Creatinine (0.7-1.2) mg/dl Est GFR ( Amer) Est GFR (Non-Af Amer) POC Glucose (mg/dL) 275 H 280 H 270 H (65-110) mg/dL Random Glucose (70-110) mg/dL Calcium (8.4-10.5) mg/dL Total Bilirubin (0.2-1.3) mg/dL AST (14-36) U/L ALT (7-56) U/L Alkaline Phosphatase (38-126) U/L NT-Pro-B Natriuret Pep (0-450) pg/mL Total Protein (5.8-8.3) g/dL Albumin (3.0-4.8) g/dL Globulin gm/dL Albumin/Globulin Ratio (1.1-1.8) Procalcitonin (0.19-0.49) NG/ML Urine Color (YELLOW) Urine Appearance (CLEAR) Urine pH (4.7-8.0) Ur Specific [place] (1.005-1.035) Urine Protein (<30 mg/dL) mg/dL Urine Glucose (UA) (NEGATIVE) mg/dL Urine Ketones (NEGATIVE) mg/dL Urine Blood (NEGATIVE) Urine Nitrate (NEGATIVE) Urine Bilirubin (NEGATIVE) Urine Urobilinogen (<1 E.U./dL) E.U./dL Ur Leukocyte Esterase (NEGATIVE) Shirley/uL Urine RBC (0-2) /hpf Urine WBC (0-6) /hpf Ur Epithelial Cells (0-5) /hpf Urine Bacteria (NEG) 12/10/17 12/10/17 12/10/17 Range/Units 19:05 18:13 15:55 WBC (4.5-11.0) 10^3/ul RBC (3.5-6.1) 10^6/uL Hgb (12.0-16.0) g/dL Hct (36.0-48.0) % MCV (80.0-105.0) fl MCH (25.0-35.0) pg MCHC (31.0-37.0) g/dl RDW (11.5-14.5) % Plt Count (120.0-450.0) 10^3/uL MPV (7.0-11.0) fl Sodium 144 (132-148) mmol/L Potassium 2.7 L* (3.6-5.0) mmol/L Chloride 103 (98-107) mmol/L Carbon Dioxide 23 (21-33) mmol/L Anion Gap 21 H (10-20) BUN 71 H (7-21) mg/dL Creatinine 1.9 H (0.7-1.2) mg/dl Est GFR ( Amer) 32 Est GFR (Non-Af Amer) 26 POC Glucose (mg/dL) 263 H (65-110) mg/dL Random Glucose 286 H (70-110) mg/dL Calcium 8.9 (8.4-10.5) mg/dL Total Bilirubin (0.2-1.3) mg/dL AST (14-36) U/L ALT (7-56) U/L Alkaline Phosphatase (38-126) U/L NT-Pro-B Natriuret Pep (0-450) pg/mL Total Protein (5.8-8.3) g/dL Albumin (3.0-4.8) g/dL Globulin gm/dL Albumin/Globulin Ratio (1.1-1.8) Procalcitonin (0.19-0.49) NG/ML Urine Color Light yellow (YELLOW) Urine Appearance Clear (CLEAR) Urine pH 6.0 (4.7-8.0) Ur Specific [place] 1.010 (1.005-1.035) Urine Protein Trace H (<30 mg/dL) mg/dL Urine Glucose (UA) 500 H (NEGATIVE) mg/dL Urine Ketones Negative (NEGATIVE) mg/dL Urine Blood Negative (NEGATIVE) Urine Nitrate Negative (NEGATIVE) Urine Bilirubin Negative (NEGATIVE) Urine Urobilinogen 0.2 (<1 E.U./dL) E.U./dL Ur Leukocyte Esterase Negative (NEGATIVE) Shirley/uL Urine RBC Negative (0-2) /hpf Urine WBC 1 - 3 (0-6) /hpf Ur Epithelial Cells 1 - 3 (0-5) /hpf Urine Bacteria Few (NEG) 12/10/17 12/10/17 Range/Units 15:39 14:35 WBC (4.5-11.0) 10^3/ul RBC (3.5-6.1) 10^6/uL Hgb (12.0-16.0) g/dL Hct (36.0-48.0) % MCV (80.0-105.0) fl MCH (25.0-35.0) pg MCHC (31.0-37.0) g/dl RDW (11.5-14.5) % Plt Count (120.0-450.0) 10^3/uL MPV (7.0-11.0) fl Sodium (132-148) mmol/L Potassium (3.6-5.0) mmol/L Chloride (98-107) mmol/L Carbon Dioxide (21-33) mmol/L Anion Gap (10-20) BUN (7-21) mg/dL Creatinine (0.7-1.2) mg/dl Est GFR ( Amer) Est GFR (Non-Af Amer) POC Glucose (mg/dL) 295 H 311 H (65-110) mg/dL Random Glucose (70-110) mg/dL Calcium (8.4-10.5) mg/dL Total Bilirubin (0.2-1.3) mg/dL AST (14-36) U/L ALT (7-56) U/L Alkaline Phosphatase (38-126) U/L NT-Pro-B Natriuret Pep (0-450) pg/mL Total Protein (5.8-8.3) g/dL Albumin (3.0-4.8) g/dL Globulin gm/dL Albumin/Globulin Ratio (1.1-1.8) Procalcitonin (0.19-0.49) NG/ML Urine Color (YELLOW) Urine Appearance (CLEAR) Urine pH (4.7-8.0) Ur Specific [place] (1.005-1.035) Urine Protein (<30 mg/dL) mg/dL Urine Glucose (UA) (NEGATIVE) mg/dL Urine Ketones (NEGATIVE) mg/dL Urine Blood (NEGATIVE) Urine Nitrate (NEGATIVE) Urine Bilirubin (NEGATIVE) Urine Urobilinogen (<1 E.U./dL) E.U./dL Ur Leukocyte Esterase (NEGATIVE) Shirley/uL Urine RBC (0-2) /hpf Urine WBC (0-6) /hpf Ur Epithelial Cells (0-5) /hpf Urine Bacteria (NEG) Laboratory Results - last 24 hr 12/10/17 12/10/17 12/10/17 14:35 15:39 15:55 WBC RBC Hgb Hct MCV MCH MCHC RDW Plt Count MPV Sodium Potassium Chloride Carbon Dioxide Anion Gap BUN Creatinine Est GFR ( Amer) Est GFR (Non-Af Amer) POC Glucose (mg/dL) 311 H 295 H Random Glucose Calcium Total Bilirubin AST ALT Alkaline Phosphatase NT-Pro-B Natriuret Pep Total Protein Albumin Globulin Albumin/Globulin Ratio Procalcitonin Urine Color Light yellow Urine Appearance Clear Urine pH 6.0 Ur Specific [place] 1.010 Urine Protein Trace H Urine Glucose (UA) 500 H Urine Ketones Negative Urine Blood Negative Urine Nitrate Negative Urine Bilirubin Negative Urine Urobilinogen 0.2 Ur Leukocyte Esterase Negative Urine RBC Negative Urine WBC 1 - 3 Ur Epithelial Cells 1 - 3 Urine Bacteria Few 06/23/18 06/23/18 06/23/18 18:13 19:05 19:37 WBC RBC Hgb Hct MCV MCH MCHC RDW Plt Count MPV Sodium 144 Potassium 2.7 L* Chloride 103 Carbon Dioxide 23 Anion Gap 21 H BUN 71 H Creatinine 1.9 H Est GFR ( Amer) 32 Est GFR (Non-Af Amer) 26 POC Glucose (mg/dL) 263 H 270 H Random Glucose 286 H Calcium 8.9 Total Bilirubin AST ALT Alkaline Phosphatase NT-Pro-B Natriuret Pep Total Protein Albumin Globulin Albumin/Globulin Ratio Procalcitonin Urine Color Urine Appearance Urine pH Ur Specific [place] Urine Protein Urine Glucose (UA) Urine Ketones Urine Blood Urine Nitrate Urine Bilirubin Urine Urobilinogen Ur Leukocyte Esterase Urine RBC Urine WBC Ur Epithelial Cells Urine Bacteria 12/10/17 12/10/17 12/10/17 20:33 21:03 22:22 WBC RBC Hgb Hct MCV MCH MCHC RDW Plt Count MPV Sodium Potassium Chloride Carbon Dioxide Anion Gap BUN Creatinine Est GFR ( Amer) Est GFR (Non-Af Amer) POC Glucose (mg/dL) 280 H 275 H 257 H Random Glucose Calcium Total Bilirubin AST ALT Alkaline Phosphatase NT-Pro-B Natriuret Pep Total Protein Albumin Globulin Albumin/Globulin Ratio Procalcitonin Urine Color Urine Appearance Urine pH Ur Specific [place] Urine Protein Urine Glucose (UA) Urine Ketones Urine Blood Urine Nitrate Urine Bilirubin Urine Urobilinogen Ur Leukocyte Esterase Urine RBC Urine WBC Ur Epithelial Cells Urine Bacteria 12/10/17 12/10/17 12/11/17 23:11 23:59 00:25 WBC RBC Hgb Hct MCV MCH MCHC RDW Plt Count MPV Sodium 144 Potassium 3.0 L Chloride 103 Carbon Dioxide 27 Anion Gap 17 BUN 76 H Creatinine 2.0 H Est GFR ( Amer) 30 Est GFR (Non-Af Amer) 25 POC Glucose (mg/dL) 305 H 237 H Random Glucose 245 H Calcium 9.0 Total Bilirubin AST ALT Alkaline Phosphatase NT-Pro-B Natriuret Pep Total Protein Albumin Globulin Albumin/Globulin Ratio Procalcitonin Urine Color Urine Appearance Urine pH Ur Specific [place] Urine Protein Urine Glucose (UA) Urine Ketones Urine Blood Urine Nitrate Urine Bilirubin Urine Urobilinogen Ur Leukocyte Esterase Urine RBC Urine WBC Ur Epithelial Cells Urine Bacteria 12/11/17 12/11/1718 01:07 02:21 03:01 WBC RBC Hgb Hct MCV MCH MCHC RDW Plt Count MPV Sodium Potassium Chloride Carbon Dioxide Anion Gap BUN Creatinine Est GFR ( Amer) Est GFR (Non-Af Amer) POC Glucose (mg/dL) 230 H 167 H 194 H Random Glucose Calcium Total Bilirubin AST ALT Alkaline Phosphatase NT-Pro-B Natriuret Pep Total Protein Albumin Globulin Albumin/Globulin Ratio Procalcitonin Urine Color Urine Appearance Urine pH Ur Specific [place] Urine Protein Urine Glucose (UA) Urine Ketones Urine Blood Urine Nitrate Urine Bilirubin Urine Urobilinogen Ur Leukocyte Esterase Urine RBC Urine WBC Ur Epithelial Cells Urine Bacteria 12/11/17 12/11/17 12/11/17 04:13 05:30 05:30 WBC 13.2 H RBC 4.06 Hgb 11.3 L Hct 34.5 L MCV 85.0 MCH 27.8 MCHC 32.8 RDW 14.2 Plt Count 231 MPV 9.2 Sodium 145 Potassium 4.1 Chloride 105 Carbon Dioxide 27 Anion Gap 16 BUN 78 H Creatinine 1.9 H Est GFR ( Amer) 32 Est GFR (Non-Af Amer) 26 POC Glucose (mg/dL) 186 H Random Glucose 218 H Calcium 9.0 Total Bilirubin 0.7 AST 13 L D ALT 23 Alkaline Phosphatase 88 NT-Pro-B Natriuret Pep Total Protein 6.2 Albumin 3.4 Globulin 2.9 Albumin/Globulin Ratio 1.2 Procalcitonin Urine Color Urine Appearance Urine pH Ur Specific [place] Urine Protein Urine Glucose (UA) Urine Ketones Urine Blood Urine Nitrate Urine Bilirubin Urine Urobilinogen Ur Leukocyte Esterase Urine RBC Urine WBC Ur Epithelial Cells Urine Bacteria 12/11/17 12/11/17 12/11/17 05:33 06:00 06:20 WBC RBC Hgb Hct MCV MCH MCHC RDW Plt Count MPV Sodium Potassium Chloride Carbon Dioxide Anion Gap BUN Creatinine Est GFR ( Amer) Est GFR (Non-Af Amer) POC Glucose (mg/dL) 198 H 225 H Random Glucose Calcium Total Bilirubin AST ALT Alkaline Phosphatase NT-Pro-B Natriuret Pep Total Protein Albumin Globulin Albumin/Globulin Ratio Procalcitonin 0.19 Urine Color Urine Appearance Urine pH Ur Specific [place] Urine Protein Urine Glucose (UA) Urine Ketones Urine Blood Urine Nitrate Urine Bilirubin Urine Urobilinogen Ur Leukocyte Esterase Urine RBC Urine WBC Ur Epithelial Cells Urine Bacteria 12/11/17 12/11/17 12/11/17 06:54 07:50 08:05 WBC RBC Hgb Hct MCV MCH MCHC RDW Plt Count MPV Sodium Potassium Chloride Carbon Dioxide Anion Gap BUN Creatinine Est GFR ( Amer) Est GFR (Non-Af Amer) POC Glucose (mg/dL) 214 H 241 H Random Glucose Calcium Total Bilirubin AST ALT Alkaline Phosphatase NT-Pro-B Natriuret Pep 99469 H Total Protein Albumin Globulin Albumin/Globulin Ratio Procalcitonin Urine Color Urine Appearance Urine pH Ur Specific [place] Urine Protein Urine Glucose (UA) Urine Ketones Urine Blood Urine Nitrate Urine Bilirubin Urine Urobilinogen Ur Leukocyte Esterase Urine RBC Urine WBC Ur Epithelial Cells Urine Bacteria 12/11/17 12/11/17 09:17 11:29 WBC RBC Hgb Hct MCV MCH MCHC RDW Plt Count MPV Sodium Potassium Chloride Carbon Dioxide Anion Gap BUN Creatinine Est GFR ( Amer) Est GFR (Non-Af Amer) POC Glucose (mg/dL) 288 H 334 H Random Glucose Calcium Total Bilirubin AST ALT Alkaline Phosphatase NT-Pro-B Natriuret Pep Total Protein Albumin Globulin Albumin/Globulin Ratio Procalcitonin Urine Color Urine Appearance Urine pH Ur Specific [place] Urine Protein Urine Glucose (UA) Urine Ketones Urine Blood Urine Nitrate Urine Bilirubin Urine Urobilinogen Ur Leukocyte Esterase Urine RBC Urine WBC Ur Epithelial Cells Urine Bacteria EKG/Cardiology Studies: Cardiology / EKG Studies 12/10/17 15:19 EKG [ELECTROCARDIOGRAM] Stat Comment: Reason For Exam: [id number] Critical Care Progress Note - Nutrition Nutrition: Nutrition Category Date Time Status Consistent Carbohydrate [DIET] Diets 12/10/17 Dinner Ordered Attending/Attestation - Attestation I have personally seen and examined this patient.: Yes I have fully participated in the care of the patient.: Yes I have reviewed all pertinent clinical information: Yes Notes (Text): 12/11/17 14:[address] Murphy's note. 67 yo female with heart transplant, on immunosuppressive Rx, admitted for COPD exacerbation
--- NOTE | 2017-12-11 11:19 | CP.PCM.CON ---
History of Present Illness - History of Present Illness History of Present Illness: 67 year old female with PMH of HTN, CKD, dyslipiemia, DM, history of cardiac surgery came in to [facility] [place] complaining of subjective fevers with shortness of breath and cough with greenish phlegm for the past 2-3 days while on a cruise ship. She thought she was just having colds and put it off but she became progressively dyspneic on exertion. She denies sore throat, no rhinorrhea, no abdominal pain, no blurring of vision, no headache or dizziness, no diarrhea, no dysuria. In the ED, she was noted to have leukocytosis and Infectious Diseases consult is requested to further evaluate and manage. Review of Systems - Review of Systems All systems: reviewed and no additional remarkable complaints except (as per HPI ) Past Patient History - Infectious Disease Hx of Infectious Diseases: None - Past Social History Smoking Status: Former Smoker - CARDIAC Hx Cardiac Disorders: Yes Hx Hypertension: Yes Other/Comment: HEART TRANSPLANT - PULMONARY Hx Respiratory Disorders: No - NEUROLOGICAL Hx Neurological Disorder: No - HEENT Hx HEENT Problems: No - RENAL Hx Chronic Kidney Disease: Yes Hx Renal Failure: Yes - ENDOCRINE/METABOLIC Hx Endocrine Disorders: Yes Hx Diabetes Mellitus Type 2: Yes Other/Comment: THYROID DISEASE - HEMATOLOGICAL/ONCOLOGICAL Hx Blood Disorders: No - INTEGUMENTARY Hx Dermatological Problems: No - MUSCULOSKELETAL/RHEUMATOLOGICAL Hx Musculoskeletal Disorders: Yes Hx Unsteady Gait: Yes - GASTROINTESTINAL Hx Gastrointestinal Disorders: No - GENITOURINARY/GYNECOLOGICAL Hx Genitourinary Disorders: No - PSYCHIATRIC Hx Psychophysiologic Disorder: Yes Hx Depression: Yes Hx Substance Use: No - SURGICAL HISTORY Other/Comment: HEART TRANSPLANT Meds Allergies/Adverse Reactions: Allergies Allergy/AdvReac Type Severity Reaction Status Date / Time No Known Allergies Allergy Verified 12/10/17 18:29 - Medications Medications: Current Medications Albuterol/Ipratropium (Duoneb 3 Mg/0.5 Mg (3 Ml) Ud) 3 ml IH Q6H [facility] Last Admin: 12/10/17 15:37 Dose: 3 ml Apixaban (Eliquis) 5 mg PO BID [facility] PRN Reason: Protocol Last Admin: 12/10/17 18:29 Dose: 5 mg Cyclosporine (Sandimmune) 50 mg PO BID [facility] Last Admin: 12/10/17 18:28 Dose: 50 mg Furosemide (Lasix) 40 mg IVP Q12H [facility] Last Admin: 12/10/17 21:21 Dose: 40 mg Home Med (Home Med) 1 unit PO DAILY [facility] Insulin Human Regular 100 (units/ Sodium Chloride) 100 mls @ 2 mls/hr IV .Q24H PRN; Protocol; 2 UNITS/HR PRN Reason: TITRATE PER MD ORDER Last Titration: 12/10/17 23:00 Dose: 7 units/hr, 7 mls/hr Ceftriaxone Sodium (Rocephin 1 Gram Ivpb) 1 gm in 100 mls @ 100 mls/hr IVPB DAILY [facility] PRN Reason: Protocol Azithromycin (Zithromax 500mg In Ns) 500 mg in 250 mls @ 167 mls/hr IVPB DAILY [facility] PRN Reason: Protocol Methylprednisolone (Solu-Medrol) 40 mg IVP Q8H [facility] Last Admin: 12/10/17 21:53 Dose: 40 mg Metoprolol Tartrate (Lopressor) 100 mg PO Q12H [facility] Last Admin: 12/10/17 15:34 Dose: Not Given Ondansetron HCl (Zofran Inj) 4 mg IVP Q6H PRN PRN Reason: Nausea/Vomiting Physical Exam - Constitutional Appears: Chronically Ill - Head Exam Head Exam: NORMAL INSPECTION - ENT Exam ENT Exam: Mucous Membranes Moist - Neck Exam Neck exam: Negative for: Lymphadenopathy, Meningismus - Respiratory Exam Respiratory Exam: Decreased Breath Sounds - Cardiovascular Exam Cardiovascular Exam: +S1, +S2 - GI/Abdominal Exam GI & Abdominal Exam: Soft. absent: Tenderness Results - Vital Signs Recent Vital Signs: Last Vital Signs Temp 99.4 F 12/10/17 19:51 Pulse 83 12/10/17 20:50 Resp 13 12/10/17 20:50 BP 107/71 12/10/17 21:21 Pulse Ox 100 12/10/17 20:50 - Labs Result Diagrams: 12/11/17 05:30 12/11/17 05:30 Labs: Laboratory Results - last 24 hr 12/10/17 12/10/17 12/10/17 14:35 15:39 15:55 Sodium Potassium Chloride Carbon Dioxide Anion Gap BUN Creatinine Est GFR ( Amer) Est GFR (Non-Af Amer) POC Glucose (mg/dL) 311 H 295 H Random Glucose Calcium Urine Color Light yellow Urine Appearance Clear Urine pH 6.0 Ur Specific Esmond 1.010 Urine Protein Trace H Urine Glucose (UA) 500 H Urine Ketones Negative Urine Blood Negative Urine Nitrate Negative Urine Bilirubin Negative Urine Urobilinogen 0.2 Ur Leukocyte Esterase Negative Urine RBC Negative Urine WBC 1 - 3 Ur Epithelial Cells 1 - 3 Urine Bacteria Few 12/10/17 12/10/17 12/10/17 18:13 19:05 19:37 Sodium 144 Potassium 2.7 L* Chloride 103 Carbon Dioxide 23 Anion Gap 21 H BUN 71 H Creatinine 1.9 H Est GFR ( Amer) 32 Est GFR (Non-Af Amer) 26 POC Glucose (mg/dL) 263 H 270 H Random Glucose 286 H Calcium 8.9 Urine Color Urine Appearance Urine pH Ur Specific Esmond Urine Protein Urine Glucose (UA) Urine Ketones Urine Blood Urine Nitrate Urine Bilirubin Urine Urobilinogen Ur Leukocyte Esterase Urine RBC Urine WBC Ur Epithelial Cells Urine Bacteria 12/10/17 12/10/17 12/10/17 20:33 21:03 22:22 Sodium Potassium Chloride Carbon Dioxide Anion Gap BUN Creatinine Est GFR ( Amer) Est GFR (Non-Af Amer) POC Glucose (mg/dL) 280 H 275 H 257 H Random Glucose Calcium Urine Color Urine Appearance Urine pH Ur Specific Esmond Urine Protein Urine Glucose (UA) Urine Ketones Urine Blood Urine Nitrate Urine Bilirubin Urine Urobilinogen Ur Leukocyte Esterase Urine RBC Urine WBC Ur Epithelial Cells Urine Bacteria 12/10/17 23:11 Sodium Potassium Chloride Carbon Dioxide Anion Gap BUN Creatinine Est GFR ( Amer) Est GFR (Non-Af Amer) POC Glucose (mg/dL) 305 H Random Glucose Calcium Urine Color Urine Appearance Urine pH Ur Specific Esmond Urine Protein Urine Glucose (UA) Urine Ketones Urine Blood Urine Nitrate Urine Bilirubin Urine Urobilinogen Ur Leukocyte Esterase Urine RBC Urine WBC Ur Epithelial Cells Urine Bacteria Assessment & Plan - Assessment and Plan (Free Text) Plan: Assessment Systemic inflammatory response syndrome, consider due to acute decompensated heart failure on top of chronic CHF, R/O community-acquired pneumonia in this patient who was on a cruise ship HTN CKD dyslipiemia DM history of cardiac surgery Plan Patient has been started on Rocephin and Zithromax pending sputum cx, blood cx, PCT, urine Legionella patient being given diuretics as well and being managed for CHF by ICU team will monitor clinically and trend WBC count
--- NOTE | 2017-12-11 13:33 | CON ---
DATE: 12/11/2017 PULMONARY CONSULTATION REASON FOR CONSULTATION: Chronic obstructive pulmonary disease. REFERRING PHYSICIAN: Navdeep Carvalho DO HISTORY OF PRESENT ILLNESS: History is obtained via extensive discussion with the ICU nurse. I have also reviewed the chart at length, and discussed the case with the patient at length. The patient is a 67-year-old female, with past medical history significant for chronic obstructive pulmonary disease, congestive heart failure, status post heart transplant, atrial fibrillation (on Eliquis), diabetes mellitus, atherosclerotic heart disease, who presents to [facility] - transferred from the cruise ship - with increasing shortness of breath at rest, dyspnea on exertion, cough, and sputum production for the past 3 days. The patient denies chest pain, coughing up of blood, or chest pain - made worse with deep respirations. There is no history of temperatures, chills or infectious exposure. There is no history of night sweats, weight loss or appetite change prior to the above events. No history of calf pains. No history of syncope or diaphoresis. No history of recent trauma. REVIEW OF SYSTEMS: No history of nausea, vomiting or diarrhea. No acute urinary symptoms. No new neurologic complaints. Rest of the review of systems is noncontributory. ALLERGIES: NO KNOWN ALLERGIES. SOCIAL HISTORY: Positive for former tobacco usage. No alcohol. FAMILY HISTORY: No inheritable diseases. HOME MEDICATIONS: Include Eliquis, Zaroxolyn, Ambien, Bumex, sirolimus, prednisone, Lopressor, Levemir, Neurontin, cyclosporin. PHYSICAL EXAMINATION GENERAL: The patient appears comfortable this morning. She is not short of breath at rest. She is not using accessory muscles for breathing. VITAL SIGNS: Temperature is 98.4, pulse 112, respirations 15, blood pressure 98/42. Oxygen saturation on nasal cannula is 99%. HEENT: Normocephalic, atraumatic. No JVD. CARDIOVASCULAR: Systolic ejection murmur at the lower left sternal border. Positive S3 gallop. LUNGS: Crackles at both bases. Mild bilateral rhonchi. No wheezing. EXTREMITIES: Mild edema. No cyanosis, no clubbing. Calves are nontender to palpation. GI: Abdomen is soft, nontender and nondistended. Bowel sounds are positive. SKIN: No acute rash. NEUROLOGIC: Limited at the present time. PERTINENT LABORATORY DATA: Chest x-ray was done yesterday and reviewed. Mild to moderate increase in pulmonary vascular congestion is noted, along with small bilateral pleural effusions. CBC: White count 13.2K, hemoglobin of 11.3, hematocrit 34.5, platelets of 231,000. Complete metabolic profile: BUN 78, creatinine 1.9, glucose 218. Rest of the metabolic profile is within normal limits. Initial B-type natriuretic peptide 82288. IMPRESSION: 1. Acute bronchitis. 2. Chronic obstructive pulmonary disease. 3. Acute congestive heart failure. 4. Renal insufficiency. 5. Atrial fibrillation. 6. Diabetes mellitus. PLAN: Again, I did discuss the case with the ICU nurse at length. I have also discussed the case with the patient at length, and reviewed the chart at length. The patient presents to [facility] - transferred from the cruise ship - with a 3-day history of worsening pulmonary symptoms. I did review the chest x-ray as above. The chest x-ray is most consistent with [id number] congestive heart failure with small bilateral pleural effusions. Cardiology evaluation with Dr. Bazzi has been ordered. The patient has been placed on intravenous Lasix. The patient also remains on her Eliquis - for her atrial fibrillation. On physical exam, there is mild bronchospasm noted. The patient is currently on DuoNeb treatments and intravenous steroids. We maybe able to decrease the intravenous steroid dosage this morning. However, I will discuss that issue with the ICU team. The patient is also on antibiotic therapy - as per Infectious Disease. Input by Dr. Argueta is noted. There are no temperatures noted. There is a very mild leukocytosis. The patient does state to feeling much better this morning, and is clinically improved - compared to a few days ago. However, her future status/prognosis does remain guarded. I will discuss the above with the entire ICU team in the next few moments. I will also discuss the above with Dr. Carvalho later this morning. Thank you very much for this pulmonary consultation. Giuliano Lam MD ASHLEY
--- NOTE | 2017-12-11 13:47 | CARD ---
APPROVED REPORT EKG Measurement Heart [id number] <Conclusion> Atrial fibrillation with rapid ventricular response with premature ventricular or aberrantly conducted complexes Right bundle branch block Left anterior fascicular block Bifascicular block Minimal voltage criteria for LVH, may be normal variant T wave abnormality, consider lateral ischemia or digitalis effect Abnormal ECG
--- NOTE | 2017-12-11 13:50 | CARD ---
APPROVED REPORT EKG Measurement Heart [id number] 320P [id number] <Conclusion> A fib with RVR and occasional premature ventricular complexes Right bundle branch block Left anterior fascicular block Bifascicular block Left ventricular hypertrophy with repolarization abnormality Abnormal ECG
--- NOTE | 2017-12-11 14:01 | PN ---
DATE: 12/11/2017 SUBJECTIVE: I saw her in the Intensive Care Unit. She was admitted yesterday. She is doing better today, little better with the breathing. She is here for multiple reasons from CHF, pneumonia, diabetes, renal insufficiency, atrial fibrillation, COPD. She is being seen by Infectious Disease, Cardiology, Pulmonology, Renal and family and consumer sciences professor. She is on multiple medications. She is on aspirin, DuoNeb, Eliquis, Lasix, Lopressor, Rocephin, Sandimmune, Solu-Medrol, Zithromax and Zofran. PHYSICAL EXAMINATION: VITAL SIGNS: She has a 97.8 temp, 125 pulse, 26 respiratory rate, 95% O2 sat on nasal cannula. GENERAL: She is much more alert, much more comfortable, even though she is still short of breath, it is better than yesterday. HEENT: Head is atraumatic, normocephalic. HEART: Regular rate. Tachy. LUNGS: Decreased breath sounds. Occasional wheezing with cough. ABDOMEN: Soft. EXTREMITIES: Trace edema. LABORATORY DATA: She has a 145 sodium, potassium 4.1, BUN 78, creatinine 1.9, still little bit up, last blood sugar was 241, calcium is 9, total bili is 0.7, AST is 13, ALT is 23, alkaline phosphatase is 88, total protein 6.2. White count 13.2, still elevated with 14.9, we are watching that, hemoglobin 11.3, hematocrit 34.5, platelets 231. ASSESSMENT AND PLAN: She still stays in the Intensive Care Unit. We will continue with aggressive treatment and care. We are waiting for other consults to come to the chart with Infectious Disease, Cardio, Pulmonary, Renal. We will check her labs tomorrow. We will get her out of bed to chair, physical therapy and hopefully she will improve She was from the cruise ship. Navdeep Carvalho DO MTDDodie
[2017-12-11] MEDS: guaiFENesin 200 mg/10 ml Syrup UD PO PRN ×2 (15:00→20:40)
--- NOTE | 2017-12-11 15:14 | CP.PCM.CON ---
History of Present Illness - History of Present Illness History of Present Illness: RENAL CONSULT HPI: 67 F w/ OHT, copd, afib that recently got off a [place] shib. SHe came w/ her son to hospital for DKA but than got admitted herself for COPD exacerbation. SHe states she has had + sputum , green production last couple days. SHe also endorses inc le edema as well during the shipt. She states she was running out of bumex while on the cruise. She has a hx of CKD - she has had discussions about starting HD in the past w/ her [place] enterprise sales executive. 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 Renal function appears to be relatively stable agree w/ diuresis as your doing - she ran out of bumex on cruise ship bp is stable hgb is stable immunosuppression per cardiology recc check cycosporin level Past Patient History - Infectious Disease Hx of Infectious Diseases: None - Past Social History Smoking Status: Former Smoker - CARDIAC Hx Cardiac Disorders: Yes Hx Hypertension: Yes Other/Comment: HEART TRANSPLANT - PULMONARY Hx Respiratory Disorders: No - NEUROLOGICAL Hx Neurological Disorder: No - HEENT Hx HEENT Problems: No - RENAL Hx Chronic Kidney Disease: Yes Hx Renal Failure: Yes - ENDOCRINE/METABOLIC Hx Endocrine Disorders: Yes Hx Diabetes Mellitus Type 2: Yes Other/Comment: THYROID DISEASE - HEMATOLOGICAL/ONCOLOGICAL Hx Blood Disorders: No - INTEGUMENTARY Hx Dermatological Problems: No - MUSCULOSKELETAL/RHEUMATOLOGICAL Hx Musculoskeletal Disorders: Yes Hx Unsteady Gait: Yes - GASTROINTESTINAL Hx Gastrointestinal Disorders: No - GENITOURINARY/GYNECOLOGICAL Hx Genitourinary Disorders: No - PSYCHIATRIC Hx Psychophysiologic Disorder: Yes Hx Depression: Yes Hx Substance Use: No - SURGICAL HISTORY Other/Comment: HEART TRANSPLANT Meds Allergies/Adverse Reactions: Allergies Allergy/AdvReac Type Severity Reaction Status Date / Time No Known Allergies Allergy Verified 12/10/17 18:29 - Medications Medications: Current Medications Albuterol/Ipratropium (Duoneb 3 Mg/0.5 Mg (3 Ml) Ud) 3 ml IH Q6H [facility] Last Admin: 12/11/17 13:27 Dose: 3 ml Apixaban (Eliquis) 2.5 mg PO BID [facility] Aspirin (Aspirin Chewable) 81 mg PO DAILY [facility] Last Admin: 12/11/17 09:02 Dose: 81 mg Cyclosporine (Sandimmune) 50 mg PO BID [facility] Last Admin: 12/11/17 09:18 Dose: 50 mg Furosemide (Lasix) 40 mg IVP Q12H [facility] Last Admin: 12/11/17 08:06 Dose: 40 mg Guaifenesin (Robitussin) 200 mg PO Q4H PRN PRN Reason: Cough and congestion Last Admin: 12/11/17 15:00 Dose: 200 mg Home Med (Home Med) 1 unit PO DAILY [facility] Last Admin: 12/11/17 09:14 Dose: 1 unit Ceftriaxone Sodium (Rocephin 1 Gram Ivpb) 1 gm in 100 mls @ 100 mls/hr IVPB DAILY [facility] PRN Reason: Protocol Last Admin: 12/11/17 09:01 Dose: 100 mls/hr Azithromycin (Zithromax 500mg In Ns) 500 mg in 250 mls @ 167 mls/hr IVPB DAILY [facility] PRN Reason: Protocol Last Admin: 12/11/17 09:00 Dose: 167 mls/hr Insulin Human Regular (Humulin R Med) 0 units SC ACHS [facility] PRN Reason: Protocol Methylprednisolone (Solu-Medrol) 40 mg IVP Q8H [facility] Last Admin: 12/11/17 15:00 Dose: 40 mg Metoprolol Tartrate (Lopressor) 100 mg PO Q12H [facility] Last Admin: 12/11/17 08:05 Dose: 100 mg Ondansetron HCl (Zofran Inj) 4 mg IVP Q6H PRN PRN Reason: Nausea/Vomiting Results - Vital Signs Recent Vital Signs: Last Vital Signs Temp 97.9 F 12/11/17 11:46 Pulse 110 H 12/11/17 11:15 Resp 18 12/11/17 11:11 BP 112/62 12/11/17 11:11 Pulse Ox 95 12/11/17 11:11 - Labs Result Diagrams: 12/11/17 05:30 12/11/17 05:30 Labs: Laboratory Results - last 24 hr 12/10/17 12/10/17 12/10/17 14:35 15:39 15:55 WBC RBC Hgb Hct MCV MCH MCHC RDW Plt Count MPV Sodium Potassium Chloride Carbon Dioxide Anion Gap BUN Creatinine Est GFR ( Amer) Est GFR (Non-Af Amer) POC Glucose (mg/dL) 311 H 295 H Random Glucose Calcium Total Bilirubin AST ALT Alkaline Phosphatase NT-Pro-B Natriuret Pep Total Protein Albumin Globulin Albumin/Globulin Ratio Procalcitonin Urine Color Light yellow Urine Appearance Clear Urine pH 6.0 Ur Specific [place] 1.010 Urine Protein Trace H Urine Glucose (UA) 500 H Urine Ketones Negative Urine Blood Negative Urine Nitrate Negative Urine Bilirubin Negative Urine Urobilinogen 0.2 Ur Leukocyte Esterase Negative Urine RBC Negative Urine WBC 1 - 3 Ur Epithelial Cells 1 - 3 Urine Bacteria Few 12/10/17 12/10/17 12/10/17 18:13 19:05 19:37 WBC RBC Hgb Hct MCV MCH MCHC RDW Plt Count MPV Sodium 144 Potassium 2.7 L* Chloride 103 Carbon Dioxide 23 Anion Gap 21 H BUN 71 H Creatinine 1.9 H Est GFR ( Amer) 32 Est GFR (Non-Af Amer) 26 POC Glucose (mg/dL) 263 H 270 H Random Glucose 286 H Calcium 8.9 Total Bilirubin AST ALT Alkaline Phosphatase NT-Pro-B Natriuret Pep Total Protein Albumin Globulin Albumin/Globulin Ratio Procalcitonin Urine Color Urine Appearance Urine pH Ur Specific [place] Urine Protein Urine Glucose (UA) Urine Ketones Urine Blood Urine Nitrate Urine Bilirubin Urine Urobilinogen Ur Leukocyte Esterase Urine RBC Urine WBC Ur Epithelial Cells Urine Bacteria 12/10/17 12/10/17 12/10/17 20:33 21:03 22:22 WBC RBC Hgb Hct MCV MCH MCHC RDW Plt Count MPV Sodium Potassium Chloride Carbon Dioxide Anion Gap BUN Creatinine Est GFR ( Amer) Est GFR (Non-Af Amer) POC Glucose (mg/dL) 280 H 275 H 257 H Random Glucose Calcium Total Bilirubin AST ALT Alkaline Phosphatase NT-Pro-B Natriuret Pep Total Protein Albumin Globulin Albumin/Globulin Ratio Procalcitonin Urine Color Urine Appearance Urine pH Ur Specific [place] Urine Protein Urine Glucose (UA) Urine Ketones Urine Blood Urine Nitrate Urine Bilirubin Urine Urobilinogen Ur Leukocyte Esterase Urine RBC Urine WBC Ur Epithelial Cells Urine Bacteria 12/10/17 12/10/17 12/11/17 23:11 23:59 00:25 WBC RBC Hgb Hct MCV MCH MCHC RDW Plt Count MPV Sodium 144 Potassium 3.0 L Chloride 103 Carbon Dioxide 27 Anion Gap 17 BUN 76 H Creatinine 2.0 H Est GFR ( Amer) 30 Est GFR (Non-Af Amer) 25 POC Glucose (mg/dL) 305 H 237 H Random Glucose 245 H Calcium 9.0 Total Bilirubin AST ALT Alkaline Phosphatase NT-Pro-B Natriuret Pep Total Protein Albumin Globulin Albumin/Globulin Ratio Procalcitonin Urine Color Urine Appearance Urine pH Ur Specific [place] Urine Protein Urine Glucose (UA) Urine Ketones Urine Blood Urine Nitrate Urine Bilirubin Urine Urobilinogen Ur Leukocyte Esterase Urine RBC Urine WBC Ur Epithelial Cells Urine Bacteria 12/11/17 12/11/17 12/11/17 01:07 02:21 03:01 WBC RBC Hgb Hct MCV MCH MCHC RDW Plt Count MPV Sodium Potassium Chloride Carbon Dioxide Anion Gap BUN Creatinine Est GFR ( Amer) Est GFR (Non-Af Amer) POC Glucose (mg/dL) 230 H 167 H 194 H Random Glucose Calcium Total Bilirubin AST ALT Alkaline Phosphatase NT-Pro-B Natriuret Pep Total Protein Albumin Globulin Albumin/Globulin Ratio Procalcitonin Urine Color Urine Appearance Urine pH Ur Specific [place] Urine Protein Urine Glucose (UA) Urine Ketones Urine Blood Urine Nitrate Urine Bilirubin Urine Urobilinogen Ur Leukocyte Esterase Urine RBC Urine WBC Ur Epithelial Cells Urine Bacteria 12/11/17 12/11/17 12/11/17 04:13 05:30 05:30 WBC 13.2 H RBC 4.06 Hgb 11.3 L Hct 34.5 L MCV 85.0 MCH 27.8 MCHC 32.8 RDW 14.2 Plt Count 231 MPV 9.2 Sodium 145 Potassium 4.1 Chloride 105 Carbon Dioxide 27 Anion Gap 16 BUN 78 H Creatinine 1.9 H Est GFR ( Amer) 32 Est GFR (Non-Af Amer) 26 POC Glucose (mg/dL) 186 H Random Glucose 218 H Calcium 9.0 Total Bilirubin 0.7 AST 13 L D ALT 23 Alkaline Phosphatase 88 NT-Pro-B Natriuret Pep Total Protein 6.2 Albumin 3.4 Globulin 2.9 Albumin/Globulin Ratio 1.2 Procalcitonin Urine Color Urine Appearance Urine pH Ur Specific [place] Urine Protein Urine Glucose (UA) Urine Ketones Urine Blood Urine Nitrate Urine Bilirubin Urine Urobilinogen Ur Leukocyte Esterase Urine RBC Urine WBC Ur Epithelial Cells Urine Bacteria 12/11/17 12/11/17 12/11/17 05:33 06:00 06:20 WBC RBC Hgb Hct MCV MCH MCHC RDW Plt Count MPV Sodium Potassium Chloride Carbon Dioxide Anion Gap BUN Creatinine Est GFR ( Amer) Est GFR (Non-Af Amer) POC Glucose (mg/dL) 198 H 225 H Random Glucose Calcium Total Bilirubin AST ALT Alkaline Phosphatase NT-Pro-B Natriuret Pep Total Protein Albumin Globulin Albumin/Globulin Ratio Procalcitonin 0.19 Urine Color Urine Appearance Urine pH Ur Specific [place] Urine Protein Urine Glucose (UA) Urine Ketones Urine Blood Urine Nitrate Urine Bilirubin Urine Urobilinogen Ur Leukocyte Esterase Urine RBC Urine WBC Ur Epithelial Cells Urine Bacteria 12/11/17 12/11/17 12/11/17 06:54 07:50 08:05 WBC RBC Hgb Hct MCV MCH MCHC RDW Plt Count MPV Sodium Potassium Chloride Carbon Dioxide Anion Gap BUN Creatinine Est GFR ( Amer) Est GFR (Non-Af Amer) POC Glucose (mg/dL) 214 H 241 H Random Glucose Calcium Total Bilirubin AST ALT Alkaline Phosphatase NT-Pro-B Natriuret Pep 73255 H Total Protein Albumin Globulin Albumin/Globulin Ratio Procalcitonin Urine Color Urine Appearance Urine pH Ur Specific [place] Urine Protein Urine Glucose (UA) Urine Ketones Urine Blood Urine Nitrate Urine Bilirubin Urine Urobilinogen Ur Leukocyte Esterase Urine RBC Urine WBC Ur Epithelial Cells Urine Bacteria 12/11/17 12/11/17 09:17 11:29 WBC RBC Hgb Hct MCV MCH MCHC RDW Plt Count MPV Sodium Potassium Chloride Carbon Dioxide Anion Gap BUN Creatinine Est GFR ( Amer) Est GFR (Non-Af Amer) POC Glucose (mg/dL) 288 H 334 H Random Glucose Calcium Total Bilirubin AST ALT Alkaline Phosphatase NT-Pro-B Natriuret Pep Total Protein Albumin Globulin Albumin/Globulin Ratio Procalcitonin Urine Color Urine Appearance Urine pH Ur Specific [place] Urine Protein Urine Glucose (UA) Urine Ketones Urine Blood Urine Nitrate Urine Bilirubin Urine Urobilinogen Ur Leukocyte Esterase Urine RBC Urine WBC Ur Epithelial Cells Urine Bacteria
--- NOTE | 2017-12-11 16:19 | RAD ---
HISTORY: chf COMPARISON: No comparison chest 12/10/2017 FINDINGS: LUNGS: Coarsened/increased interstitial markings with patchy alveolar-type infiltrates both lung bases. Small bilateral effusions. Findings suggest mild pulmonary edema -CHF PLEURA: No significant pleural effusion identified, no pneumothorax apparent. CARDIOVASCULAR: Cardiomegaly. No change gibson right-sided bipolar pacemaker/ defibrillator. Disconnected left-sided pacemaker -defibrillator wires noted OSSEOUS STRUCTURES: No significant abnormalities. VISUALIZED UPPER ABDOMEN: Normal. OTHER FINDINGS: None. IMPRESSION: Coarsened/increased interstitial markings with patchy alveolar-type infiltrates both lung bases. Small bilateral effusions. Findings suggest mild pulmonary edema -CHF
--- NOTE | 2017-12-11 17:48 | US ---
HISTORY: Leg pain and swelling. Evaluate for DVT PHYSICIAN(S): Lev Kang MD. TECHNIQUE: Duplex sonography and color-flow Doppler with graded compression were used to evaluate the deep venous systems of both lower extremities. The exam is limited by edema. FINDINGS: The visualized deep venous systems of both lower extremities are sonographically normal and compressible. Normal wave forms and augmentation are seen. There is no sonographic evidence for deep venous thrombosis in the visualized segments of both lower extremities. IMPRESSION: No sonographic evidence for deep venous thrombosis in the visualized segments of both lower extremities.
--- NOTE | 2017-12-11 21:34 | CP.PCM.PN ---
Subjective - Date & Time of Evaluation Date of Evaluation: 12/11/17 Time of Evaluation: 21:31 - Subjective Subjective: S:Patient was seen at bedside. She requested a sleeping pill. States that she takes Ambien 5 mg at home for sleep. She does not have any acute symptoms at this time. Medical record was reviewed. O: Last Vital Signs 3 Temp 97.8 F 12/11/17 18:00 Pulse 132 H 12/11/17 18:00 Resp 18 12/11/17 18:00 BP 124/80 12/11/17 20:40 Pulse Ox 96 12/11/17 18:00 Awake, alert, not in distress. LUNGS: Normal breathing pattern. NEURO:Speech normal. A:Insomnia. P:Ambien 5 mg pO x 1. Objective - Vital Signs/Intake and Output Vital Signs (last 24 hours): Temp Pulse Resp BP Pulse Ox 97.8 F 132 H 18 124/80 96 12/11/17 18:00 12/11/17 18:00 12/11/17 18:00 12/11/17 20:40 12/11/17 18:00 Intake and Output: 12/11/17 12/12/17 18:59 06:59 Intake Total 800 Output Total 400 Balance 400 - Medications Medications: Current Medications Albuterol/Ipratropium (Duoneb 3 Mg/0.5 Mg (3 Ml) Ud) 3 ml IH Q6H [facility] Last Admin: 12/11/17 15:00 Dose: Not Given Apixaban (Eliquis) 2.5 mg PO BID [facility] Last Admin: 12/11/17 17:48 Dose: 2.5 mg Aspirin (Aspirin Chewable) 81 mg PO DAILY [facility] Last Admin: 12/11/17 09:02 Dose: 81 mg Cyclosporine (Sandimmune) 50 mg PO BID [facility] Last Admin: 12/11/17 17:47 Dose: 50 mg Furosemide (Lasix) 40 mg IVP Q12H [facility] Last Admin: 12/11/17 20:40 Dose: 40 mg Guaifenesin (Robitussin) 200 mg PO Q4H PRN PRN Reason: Cough and congestion Last Admin: 12/11/17 20:40 Dose: 200 mg Home Med (Home Med) 1 unit PO DAILY [facility] Last Admin: 12/11/17 09:14 Dose: 1 unit Ceftriaxone Sodium (Rocephin 1 Gram Ivpb) 1 gm in 100 mls @ 100 mls/hr IVPB DAILY [facility] PRN Reason: Protocol Last Admin: 12/11/17 09:01 Dose: 100 mls/hr Azithromycin (Zithromax 500mg In Ns) 500 mg in 250 mls @ 167 mls/hr IVPB DAILY [facility] PRN Reason: Protocol Last Admin: 12/11/17 09:00 Dose: 167 mls/hr Insulin Human Regular (Humulin R Med) 0 units SC ACHS [facility] PRN Reason: Protocol Methylprednisolone (Solu-Medrol) 40 mg IVP Q8H [facility] Last Admin: 12/11/17 15:00 Dose: 40 mg Metoprolol Tartrate (Lopressor) 100 mg PO Q12H [facility] Last Admin: 12/11/17 17:47 Dose: 100 mg Ondansetron HCl (Zofran Inj) 4 mg IVP Q6H PRN PRN Reason: Nausea/Vomiting - Labs Labs: 12/11/17 05:30 12/11/17 05:30 PT 12.9 SECONDS (9.4-12.5) H 12/10/17 12:30 INR 1.12 (0.93-1.08) H 12/10/17 12:30 APTT 36.8 Seconds (25.1-36.5) H 12/10/17 12:30
[2017-12-12] MEDS: Albuterol-Ipratrop 3 mg / 0.5 (3 ml) UD IH SCH ×5 (02:40→21:44)
[2017-12-12] MEDS: MethylPREDNISolone 40 mg Vial IVP SCH ×3 (05:38→21:42)
[2017-12-12 07:15] LABS: ALB/GLOB RATIO 1.1 (1.1-1.8); ALBUMIN 3.4 g/dL (3.0-4.8)
[2017-12-12] MEDS: guaiFENesin 200 mg/10 ml Syrup UD PO PRN ×3 (07:16→20:03)
[2017-12-12 07:23] LABS: HEMOGLOBIN 11.9 g/dL (12.0-16.0); MEAN CELL VOLUME 85.5 fl (80.0-105.0); MEAN CORPUSCULAR HEMOGLOBIN 27.5 pg (25.0-35.0); MEAN CORPUSCULAR HGB CONC 32.2 g/dl (31.0-37.0); MEAN PLATELET VOLUME 9.7 fl (7.0-11.0); RBC 4.33 10^6/uL (3.5-6.1); RED CELL DISTRIBUTION WIDTH 14.4 % (11.5-14.5); WHITE BLOOD COUNT 20.8 10^3/ul (4.5-11.0)
--- NOTE | 2017-12-12 07:59 | PN ---
DATE: 12/12/2017 PULMONARY NOTE SUBJECTIVE: The patient appears comfortable this morning. She is not short of breath at rest. PHYSICAL EXAMINATION: VITAL SIGNS: Temperature is 98.8, pulse on the monitor is 94, respiratory rate 18-20, blood pressure 151/88. Oxygen saturation on room air is 95%. HEENT: Normocephalic, atraumatic. No JVD. CARDIOVASCULAR: Systolic ejection murmur at the lower left sternal border. Positive S3 gallop. LUNGS: Less crackles at the bases. Minimal/less rhonchi. No wheezing. EXTREMITIES: Mild edema. No cyanosis, no clubbing. Calves are nontender to palpation. GASTROINTESTINAL: Abdomen is soft, nontender, and nondistended. Bowel sounds are positive. SKIN: No acute rash. NEUROLOGIC: Limited at the present time. IMPRESSION: 1. Acute bronchitis. 2. Chronic obstructive pulmonary disease. 3. Acute congestive heart failure. 4. Renal insufficiency. 5. Atrial fibrillation. 6. Diabetes mellitus. PLAN: The patient appears comfortable this morning. She is not short of breath at rest. She does state to feeling much, much better overall. On physical exam, her bronchospasm continues to resolve. In addition, the alveolar-arterial gradient also continues to resolve. Oxygen saturation on room air is now 95%. I will continue with the current nebulizer treatments and decrease the intravenous steroids this morning. The patient remains on antibiotic therapy. There are no temperatures noted. Input by Dr. Argueta is noted. Inputs by Cardiology and Renal are also noted. Clinical status of the patient has significantly improved - compared to the initial presentation. The patient is now on the telemetry unit. Out of bed is ordered. I will discuss the above with Dr. Carvalho. Giuliano Lam MD MTDD
[2017-12-12] MEDS: Insulin Reg-MEDIUM-Coverage SC SCH ×4 (08:03→22:00)
--- NOTE | 2017-12-12 08:28 | PN ---
DATE: 12/12/2017 SUBJECTIVE: I saw Angelique resting comfortably in bed. She slept well. She is breathing better. She is feeling better overall. She is not getting PT or out of bed to chair, we have to help her with that. MEDICATIONS: She is on aspirin, Doryx, DuoNebs, Eliquis, insulin, Lasix, Lopressor, Robitussin, Rocephin IV, Sandimmune, Solu-Medrol and Zofran. PHYSICAL EXAMINATION: VITAL SIGNS: 98.8 temp, 99 pulse, 151/88 blood pressure. We will work with the blood pressure medications. 20 respiratory rate, 95% O2 sat on room air. HEENT: Head is atraumatic, normocephalic. HEART: Regular rate. LUNGS: Decreased breath sounds, but clear. No wheezes or rhonchi. ABDOMEN: Soft. EXTREMITIES: No edema, but weak. LABORATORY DATA: She has a 20.8 white count, could be from the steroids; 11.9 hemoglobin; 37 hematocrit with a 288 platelets. I do think clinically she is improving despite the white count elevating. She has a 145 sodium, potassium 3.9. BUN 84, creatinine 2.7, which is increased, I will get Renal involved. 118 blood sugar, 9 calcium. AST is 23, ALT is 27, alk phos 91, total protein 6.3. ASSESSMENT AND PLAN: I also want to know what Physical Therapy has to add. I have not seen her yet. I will make sure that clearance here. Continue with aggressive treatment and care. I doubt she has renal insufficiency, acute kidney injury to her diagnoses with congestive heart failure, pneumonia, diabetes, renal insufficiency, chronic obstructive pulmonary disease and atrial fibrillation. Navdeep Carvalho DO
--- NOTE | 2017-12-12 08:29 | PN ---
DATE: 12/11/2017 SUBJECTIVE: Patient was seen and examined at bedside. She is comfortable. She said that she is doing subjectively much better. Her breathing better. Leg swelling is better. She had uneventful night. PHYSICAL EXAMINATION: VITAL SIGNS: Heart rate 125, blood pressure 116/65, oxygen saturation 96% on 1 liter nasal cannula, respiratory rate 16. HEENT: Head and neck atraumatic. LUNGS: Clear to auscultation bilaterally. HEART: Irregular rate and rhythm. S1, S2 distant. ABDOMEN: Soft, nontender, nondistended. MUSCULOSKELETAL: 1+ bilateral pedal and ankle edema. NEUROLOGICAL: Patient moves all extremities spontaneously. SKIN: Moist. PSYCHIATRIC: Patient is alert, awake and oriented, not in respiratory or otherwise distress. LABORATORY DATA: WBC 13.2, hemoglobin 11.3, platelet count 231. Sodium 145, potassium 4.1, chloride 105, carbon dioxide 27, BUN 78, creatinine 1.9, glucose 214. AST 13, ALT 23, total bilirubin 0.7. MEDICATIONS: DuoNeb every 6 hours, Eliquis 5 mg p.o. daily, aspirin 81 mg p.o. daily, cyclosporine, Lasix 40 mg IV q every 12 hours, Levemir 30 units subcutaneous and regular insulin with mod coverage, Solu-Medrol 40 mg IV every 8 hours, metoprolol 100 mg p.o. every 12 hours, Zofran p.r.n., potassium supplementations, ceftriaxone, azithromycin. Chest x-ray showed improved congestion. ASSESSMENT AND PLAN: This is a 67-year-old lady who presented with chronic obstructive pulmonary exacerbation and complaints of fluid overload. She was treated with diuresis, steroid taper, bronchodilator/nebulizers and antibiotics. She appears to be substantially improving. She is on nasal cannula 1 liter per minute and her oxygen saturation is 98%. Her blood pressure is stable, however, her heart rate is still poorly controlled. I would attribute that to b-2 agonists nebulizer therapy; however, the patient is on metoprolol 100 mg p.o. every 12 hours. The dose if needed will be adjusted by Cardiology service. Echocardiogram is pending. We are continuing therapeutic anticoagulation with Eliquis. We will get the patient out of bed to chair today. Physical therapy and optimization of oral nutrition will be recommended. Overall, however, the patient is doing much better. ccm time 40 min Bebo Murphy MD [facility] # [id number] ASH[place]
--- NOTE | 2017-12-12 08:29 | CON ---
DATE: 12/11/2017 REASON FOR DICTATION: Covering Dr. Lev Bazzi. REASON FOR CONSULTATION: Cardiac evaluation, status post heart transplant, admitted with generalized weakness, abdominal pain. BRIEF CLINICAL HISTORY: This is a 67-year-old lady with past medical history significant for heart transplant, COPD, atrial fibrillation, chronic on Coumadin, accompanying with son on the cruise with son got admitted with the diabetic ketoacidosis. While the patient was waiting in the emergency room, got sick to the stomach. She has crampy abdominal pain and bloated and feel abdominal pain so I have also get admitted. She denies any chest pain, shortness of breath, any palpitation. At one point, patient also complained of shortness of breath as well but no further episode of chest pain, shortness of breath, palpitation or abdominal pain noted. Patient is currently in ICU. She is going to be transferred to . Patient is from [place] and has to live with the son. Son is admitted with diabetic ketoacidosis. Patient is going to stay in the hospital. Denies any chest pain. PAST MEDICAL HISTORY: Significant for heart transplant in 1993 in [place], on immunosuppression regimen, hypothyroidism, hypertension, type 2 diabetes, vitamin D deficiency, chronic atrial fibrillation on Eliquis. ALLERGIES: NO KNOWN DRUG ALLERGY. SOCIAL HISTORY: . Denies any history of alcohol abuse. CURRENT MEDICATIONS: Patient at home is taking Eliquis 2.5 mg daily, Zaroxolyn, Ambien, Bumex, prednisone, Lopressor, Levemir, Neurontin, cyclosporine 50 mg twice a day, sirolimus 1 mg p.o. for immunosuppression for heart transplant. REVIEW OF SYSTEMS: As per HPI. PHYSICAL EXAMINATION: VITAL SIGNS: As follows, temperature afebrile, heart rate 94, blood pressure 112/62. HEENT: PERRLA. Extraocular muscles intact. NECK: Supple. No carotid bruit. No thyromegaly. CHEST: Clear to auscultation. HEART: S1 and S2 regular. ABDOMEN: Soft. EXTREMITIES: Clubbing and cyanosis negative. LABORATORY DATA: Blood workup as follows, WBC 13.2, hemoglobin 11.3, hematocrit 34.5, platelet count 231. Chemistry shows sodium 145, potassium 4.1, chloride 105, carbon dioxide 27, anion gap of 15, BUN 78, creatinine 1.9. Glucose 198, total protein 6.2, albumin 3.2, albumin globulin ratio 1.2. Prolactin 0.12. IMPRESSION AND PLAN: A 67-year-old female withe past medical history significant for type 1 diabetes, heart transplant secondary to valve in 1995 at [place], history of chronic atrial fibrillation on Eliquis, was in cruise ship, while waiting for the son who has had diabetic ketoacidosis, patient feels weak and get admitted. Denies any chest pain. So far no evidence of acute myocardial infarction, history of chronic renal insufficiency, severe hypokalemia on admission, potassium was 2.1, now improved to after supplementation 4.1, symptoms are seen most likely secondary to severe hypokalemia. We will get lipid profile, TSH, hemoglobin A1c. We will get echo to assess left ventricular function. I will transfer care tomorrow to Dr. Lev Bazzi. Electrocardiogram shows atrial fibrillation, right bundle branch block, left axis deviation, no acute ST-T changes noted. Thank you, Dr. Carvalho, for providing us the opportunity in taking care of the patient, Angelique Kang. Julio Duval MD
[2017-12-12] MEDS: cefTRIAXone 1 gm 1 GM/100 ML BAG IVPB SCH (09:34)
[2017-12-12] MEDS: SIROLIMUS 1 MG PO SCH (09:38)
[2017-12-12] MEDS ORDERED: SIROLIMUS 1 MG PO SCH (10:00)
[2017-12-12] MEDS ORDERED: CYCLOSPORINE MODIFIED 50 MG PO SCH (10:00)
--- NOTE | 2017-12-12 10:32 | RAD ---
HISTORY: follow up COMPARISON: 12/11/2017. FINDINGS: LUNGS: The lungs are well inflated. There is moderate pulmonary venous congestion PLEURA: No significant pleural effusion identified, no pneumothorax apparent. CARDIOVASCULAR: There is moderate cardiomegaly. Status post CABG. There is stable position of right-sided pacemaker. OSSEOUS STRUCTURES: No significant abnormalities. VISUALIZED UPPER ABDOMEN: Normal. OTHER FINDINGS: None. IMPRESSION: No acute findings. Severe cardiomegaly and moderate pulmonary venous congestion.
[2017-12-12] MEDS ORDERED: Albuterol-Ipratrop 3 mg / 0.5 (3 ml) UD IH PRN (11:43)
--- NOTE | 2017-12-12 12:48 | CP.PCM.PN ---
Subjective - Date & Time of Evaluation Date of Evaluation: 12/12/17 Time of Evaluation: 12:45 - Subjective Subjective: Nephrology Consultation Note Assessment: Stable COPD exacerbation, hyperglycemia, hypokalemia Acute Kidney Injury (N17.9) likely hemodynamic Diabetic chronic Kidney Disease (E11.22) Hypertensive Chronic Kidney Disease (I12.9) Chronic Kidney Disease (N18.3) Stage 3 with ? mg proteinuria (R80.9) Anemia (D64.9), HTN (I12.9 Hx of heart transplant, CAD, diastolic CHF, A fib on systemic a/c, pulmonary HTN Plan No acute need for renal replacement therapy at this time. Hypertension control with meds as ordered. Patient not on ACEI/ARB due to recent [place] Monitor Input/Output, daily weights and renal function with basic metabolic panel agree to hold lasix due to rise in serum cr. will resume once stable renal function supplements lytes as needed check renal sonogram cardiology and pulmonary following Dose meds/antibiotics for reduced GFR. Avoid fleets enema/magnesium based laxatives. Avoid nephrotoxins/NSAIDs/ iodinated contrast (unless needed emergently) Glycemic control Further work up for as per primary team Thanks for allowing me to participate in care of your patient. Will follow patient with you. Please call if any Qs Dr Darell Fox Office: [phone] Subjective: Noted events overnight. Patients feels okay. Denies chest pain, palpitation, improved shortness of breath, leg swelling. has cough but better All other negative. lowest BP 84/49 Physical Examination: General Appearance: Comfortable, in no acute respiratory distress, co-operative . Vitals reviewed and noted as below Head; Atraumatic, normocephalic ENT: no ulcers no thrush. Tongue is midline. Oropharynx: no rash or ulcers. EYES: Pupils are equal, round and reactive to light accommodation. Eye muscles and extraocular movement intact. Sclera is anicteric. Neck; supple no lymphadenopathy, no thyromegaly or bruit Lungs: Normal respiratory rate/effort. Breath sounds bilateral equal and clear Heart: Normal rate. s1s2 normal. No rub or gallop. Extremities: 2+ edema. No varicose veins Neurological: Patient is alert, awake and oriented to person, place and time. No focal deficit. Strength bilateral appropriate and equal Skin: Warm and dry. Normal turgor. No rash. Palpitation: Normal elasticity for age Abdomen: Abdomen is soft. Bowel sounds +. There is no abdominal tenderness, no guarding/rigidity no organomegaly Psych: normal insight and normal affect/mood MSK: no joint tenderness or swelling. Digits and nails normal, no deformity : kidney or bladder not palpable Labs/imaging reviewed. Past medical history, past surgical history, family history, social history, allergy reviewed and noted as below Family hx: no hx of CKD. Rest non-contributory Objective - Vital Signs/Intake and Output Vital Signs (last 24 hours): Temp Pulse Resp BP Pulse Ox 98 F 87 18 132/78 95 12/12/17 12:00 12/12/17 12:00 12/12/17 12:00 12/12/17 12:00 12/12/17 06:00 Intake and Output: 12/12/17 12/12/17 06:59 18:59 Intake Total 720 Balance 720 - Medications Medications: Current Medications Albuterol/Ipratropium (Duoneb 3 Mg/0.5 Mg (3 Ml) Ud) 3 ml IH Q6H [facility] Last Admin: 12/12/17 08:00 Dose: Not Given Albuterol/Ipratropium (Duoneb 3 Mg/0.5 Mg (3 Ml) Ud) 3 ml IH Q2 PRN PRN Reason: Shortness of Breath Last Admin: 12/12/17 11:53 Dose: 3 ml Apixaban (Eliquis) 2.5 mg PO BID [facility] Last Admin: 12/12/17 09:33 Dose: 2.5 mg Aspirin (Aspirin Chewable) 81 mg PO DAILY [facility] Last Admin: 12/12/17 09:32 Dose: 81 mg Cyclosporine (Sandimmune) 50 mg PO BID [facility] Last Admin: 12/12/17 09:33 Dose: 50 mg Doxycycline Hyclate (Doryx) 100 mg PO Q12 [facility] PRN Reason: Protocol Last Admin: 12/12/17 09:32 Dose: 100 mg Guaifenesin (Robitussin) 200 mg PO Q4H PRN PRN Reason: Cough and congestion Last Admin: 12/12/17 12:02 Dose: 200 mg Home Med (Home Med) 1 unit PO DAILY [facility] Last Admin: 12/12/17 09:34 Dose: 1 unit Ceftriaxone Sodium (Rocephin 1 Gram Ivpb) 1 gm in 100 mls @ 100 mls/hr IVPB DAILY [facility] PRN Reason: Protocol Last Admin: 12/12/17 09:34 Dose: 100 mls/hr Insulin Human Regular (Humulin R Med) 0 units SC ACHS [facility] PRN Reason: Protocol Last Admin: 12/12/17 12:02 Dose: 3 units Methylprednisolone (Solu-Medrol) 40 mg IVP Q12 [facility] Last Admin: 12/12/17 09:32 Dose: 40 mg Metoprolol Tartrate (Lopressor) 100 mg PO Q12H [facility] Last Admin: 12/12/17 05:17 Dose: 100 mg Non-Formulary Medication (Sirolimus [Rapamune]) 1 mg PO DAILY [facility] Last Admin: 12/12/17 09:38 Dose: Not Given Ondansetron HCl (Zofran Inj) 4 mg IVP Q6H PRN PRN Reason: Nausea/Vomiting - Labs Labs: 12/12/17 06:44 12/12/17 06:44 PT 12.9 SECONDS (9.4-12.5) H 12/10/17 12:30 INR 1.12 (0.93-1.08) H 12/10/17 12:30 APTT 36.8 Seconds (25.1-36.5) H 12/10/17 12:30
--- NOTE | 2017-12-12 16:36 | CP.PCM.PN ---
Subjective - Date & Time of Evaluation Date of Evaluation: 12/12/17 Time of Evaluation: 09:50 - Subjective Subjective: Cough is better, breathing better, no fevers. Objective - Vital Signs/Intake and Output Vital Signs (last 24 hours): Temp Pulse Resp BP Pulse Ox 98.8 F 109 H 20 151/88 H 95 12/12/17 06:00 12/12/17 06:00 12/12/17 06:00 12/12/17 06:00 12/12/17 06:00 Intake and Output: 12/12/17 12/12/17 06:59 18:59 Intake Total 720 Balance 720 - Medications Medications: Current Medications Albuterol/Ipratropium (Duoneb 3 Mg/0.5 Mg (3 Ml) Ud) 3 ml IH Q6H [facility] Last Admin: 12/11/17 20:00 Dose: 3 ml Apixaban (Eliquis) 2.5 mg PO BID [facility] Last Admin: 12/11/17 17:48 Dose: 2.5 mg Aspirin (Aspirin Chewable) 81 mg PO DAILY [facility] Last Admin: 12/11/17 09:02 Dose: 81 mg Cyclosporine (Sandimmune) 50 mg PO BID [facility] Last Admin: 12/11/17 17:47 Dose: 50 mg Doxycycline Hyclate (Doryx) 100 mg PO Q12 [facility] PRN Reason: Protocol Furosemide (Lasix) 40 mg IVP Q12H [facility] Last Admin: 12/11/17 20:40 Dose: 40 mg Guaifenesin (Robitussin) 200 mg PO Q4H PRN PRN Reason: Cough and congestion Last Admin: 12/11/17 20:40 Dose: 200 mg Home Med (Home Med) 1 unit PO DAILY [facility] Last Admin: 12/11/17 09:14 Dose: 1 unit Ceftriaxone Sodium (Rocephin 1 Gram Ivpb) 1 gm in 100 mls @ 100 mls/hr IVPB DAILY [facility] PRN Reason: Protocol Last Admin: 12/11/17 09:01 Dose: 100 mls/hr Insulin Human Regular (Humulin R Med) 0 units SC ACHS [facility] PRN Reason: Protocol Last Admin: 12/11/17 21:40 Dose: Not Given Methylprednisolone (Solu-Medrol) 40 mg IVP Q8H [facility] Last Admin: 12/12/17 05:38 Dose: 40 mg Metoprolol Tartrate (Lopressor) 100 mg PO Q12H [facility] Last Admin: 12/12/17 05:17 Dose: 100 mg Ondansetron HCl (Zofran Inj) 4 mg IVP Q6H PRN PRN Reason: Nausea/Vomiting - Labs Labs: 12/11/17 05:30 12/11/17 05:30 PT 12.9 SECONDS (9.4-12.5) H 12/10/17 12:30 INR 1.12 (0.93-1.08) H 12/10/17 12:30 APTT 36.8 Seconds (25.1-36.5) H 12/10/17 12:30 - Constitutional Appears: Non-toxic, Chronically Ill - Head Exam Head Exam: NORMAL INSPECTION - ENT Exam ENT Exam: Mucous Membranes Moist - Neck Exam Neck Exam: absent: Meningismus - Respiratory Exam Respiratory Exam: Decreased Breath Sounds - Cardiovascular Exam Cardiovascular Exam: +S1, +S2 - GI/Abdominal Exam GI & Abdominal Exam: Soft. absent: Tenderness Assessment and Plan - Assessment and Plan (Free Text) Plan: Assessment Systemic inflammatory response syndrome, consider due to acute decompensated heart failure on top of chronic CHF, on top of acute bronchitis who was [place] a cruise ship HTN CKD dyslipiemia DM history of cardiac surgery Plan will continue Zithromax day 2 for 3-5 days; blood cx are negative, PCT is normal patient being given diuretics as well and being managed for CHF as well and being given steroids
[2017-12-12 18:40] VITALS: O2SAT 97
--- NOTE | 2017-12-12 19:23 | CARD ---
APPROVED REPORT EXAM: Two-dimensional and M-mode echocardiogram with Doppler and color Doppler. INDICATION Congestive Heart Failure 2D DIMENSIONS IVSd1.5 (0.7-1.1cm)LVDd3.8 (3.9-5.9cm) PWd1.5 (0.7-1.1cm)LVDs2.9 (2.5-4.0cm) LVEF (%)46.0 (>50%) M-Mode DIMENSIONS Aortic Root2.30 (2.2-3.7cm)Aortic Cusp Exc.1.60 (1.5-2.0cm) Aortic Valve AoV Peak Askxrmwx253.0cm/Brijesh Peak GR.6mmHg Mitral Valve E/A ratio0.0 TDI E/Lateral E'0.0E/Medial E'0.0 Tricuspid Valve TR Peak [id number] [id number] Peak Gr.37mmHg [id number] LEFT VENTRICLE The left ventricle is normal size. There is mild concentric left ventricular hypertrophy. The systolic function is mildly impaired. Apical motion consistent with pacemaker activation. RIGHT VENTRICLE The right ventricle is mildly dilated. There is normal right ventricular wall thickness. The right ventricular systolic function is normal. ATRIA The left atrium is severely dilated. The right atrium is moderately dilated. AORTIC VALVE The aortic valve is severely thickened. No aortic regurgitation is present. There is no aortic valvular stenosis. MITRAL VALVE The mitral valve is moderately thickened. Mitral regurgitation is moderate The mitral regurgitant jet is eccentrically directed. TRICUSPID VALVE There is severe tricuspid regurgitation. There is mild to moderate pulmonary hypertension. GREAT VESSELS The aortic root is normal in size. The aortic root is normal in size. The IVC collapses <50% with inspiration. <Conclusion> The left ventricle is normal size. There is mild concentric left ventricular hypertrophy. The systolic function is mildly impaired. Apical motion consistent with pacemaker activation. The left atrium is severely dilated. Mitral regurgitation is moderate The mitral regurgitant jet is eccentrically directed. There is severe tricuspid regurgitation. There is mild to moderate pulmonary hypertension.
[2017-12-13] MEDS: Albuterol-Ipratrop 3 mg / 0.5 (3 ml) UD IH SCH ×2 (03:15→07:27)
[2017-12-13 07:36] LABS: HEMOGLOBIN 11.4 g/dL (12.0-16.0); MEAN CELL VOLUME 85.2 fl (80.0-105.0); MEAN CORPUSCULAR HEMOGLOBIN 27.3 pg (25.0-35.0); MEAN PLATELET VOLUME 9.4 fl (7.0-11.0); RBC 4.18 10^6/uL (3.5-6.1); RED CELL DISTRIBUTION WIDTH 14.4 % (11.5-14.5); WHITE BLOOD COUNT 15.3 10^3/ul (4.5-11.0)
[2017-12-13 08:02] LABS: ALB/GLOB RATIO 1.2 (1.1-1.8); ALBUMIN 3.3 g/dL (3.0-4.8); CALCIUM 8.8 mg/dL (8.4-10.5)
--- NOTE | 2017-12-13 08:05 | PN ---
DATE: 12/13/2017 PULMONARY NOTE SUBJECTIVE: The patient appears comfortable this morning. She is not short of breath at rest. PHYSICAL EXAMINATION: VITAL SIGNS: (Last noted in the computer): Temperature 98.4, pulse 95, respirations 18/20, blood pressure 147/90. Oxygen saturation on room air is 97%. HEENT: Normocephalic, atraumatic. No JVD. CARDIOVASCULAR: Systolic ejection murmur at the lower left sternal border. Positive S3 gallop. LUNGS: Minimal/less crackles at the bases. No rhonchi or wheezing this morning. EXTREMITIES: Mild edema. No cyanosis. No clubbing. Calves are nontender to palpation. GI: Abdomen is soft, nontender and nondistended. Bowel sounds are positive. SKIN: No acute rash. NEUROLOGIC: Limited at the present time. IMPRESSION: 1. Acute bronchitis. 2. Chronic obstructive pulmonary disease. 3. Acute congestive heart failure. 4. Renal insufficiency. 5. Atrial fibrillation. 6. Diabetes mellitus. PLAN: The patient appears very comfortable this morning. She is not short of breath at rest. She does state to feeling much, much better overall. On physical exam, her bronchospasm continues to resolve. In addition, the oxygen saturation on room air is now 97%. I will continue with the current nebulizer treatments and change to oral steroids this morning. Inputs by Infectious Disease, Renal and Cardiology are also noted. The clinical status of the patient is significantly improved overall. I will discuss the above with Dr. Carvalho. Giuliano Lam MD MTDD
[2017-12-13 08:36] VITALS: PULSE 18; RESP 100; TEMP 97.9
[2017-12-13] MEDS: cefTRIAXone 1 gm 1 GM/100 ML BAG IVPB SCH (10:11)
[2017-12-13] MEDS: Insulin Reg-MEDIUM-Coverage SC SCH ×2 (10:16→12:45)
[2017-12-13] MEDS: SIROLIMUS 1 MG PO SCH (10:20)
[2017-12-13 10:22] VITALS: BP 152/82
--- NOTE | 2017-12-13 11:46 | PN ---
DATE: 12/13/2017 CARDIOLOGY FOLLOWUP SUBJECTIVE: The patient is resting comfortably. OBJECTIVE: Blood pressure 152/82, heart rate is in the 90s. NECK: Negative JVD. LUNGS: Without rales. HEART: Reveal S1, S2. EXTREMITIES: Without edema. DATA: Hemoglobin 11.4, white count is 15.3. Chemistries, BUN and creatinine 99 and 2.6. The glucose is 331. IMPRESSION: 1. Diabetes mellitus. 2. History of heart transplantation. 3. Atrial fibrillation. 4. Abnormal electrocardiogram. Given these findings, the patient is scheduled for discharge today. Follow up with her transplant team. Lev Bazzi MD
--- NOTE | 2017-12-13 12:25 | CP.PCM.PN ---
Subjective - Date & Time of Evaluation Date of Evaluation: 12/13/17 Time of Evaluation: 12:24 - Subjective Subjective: Nephrology Consultation Note Assessment: Stable COPD exacerbation, hyperglycemia, hypokalemia Acute Kidney Injury (N17.9) likely hemodynamic Diabetic chronic Kidney Disease (E11.22) Hypertensive Chronic Kidney Disease (I12.9) Chronic Kidney Disease (N18.3) Stage 3 with ? mg proteinuria (R80.9) Anemia (D64.9), HTN (I12.9 Hx of heart transplant, CAD, CHF, A fib on systemic a/c, pulmonary HTN Plan No acute need for renal replacement therapy at this time. Hypertension control with meds as ordered. Patient not on ACEI/ARB due to recent [place] Monitor Input/Output, daily weights and renal function with basic metabolic panel resume diuretics at d/c. rise in BUN likely contributed by steroids supplements lytes as needed check renal sonogram cardiology and pulmonary following Dose meds/antibiotics for reduced GFR. Avoid fleets enema/magnesium based laxatives. Avoid nephrotoxins/NSAIDs/ iodinated contrast (unless needed emergently) Glycemic control Further work up for as per primary team. pt to f/up with her renal MD in [place] after d/c Thanks for allowing me to participate in care of your patient. Will follow patient with you while in hospital. Please call if any Qs Dr Darell Fox Office: [phone] Subjective: Noted events overnight. Patients feels okay. Denies chest pain, palpitation, improved shortness of breath, leg swelling. All other negative. lowest BP 84/49 initially upset due to transportation issues while being planned for d/c Physical Examination: General Appearance: Comfortable, in no acute respiratory distress, co-operative . Vitals reviewed and noted as below Head; Atraumatic, normocephalic ENT: no ulcers no thrush. Tongue is midline. Oropharynx: no rash or ulcers. EYES: Pupils are equal, round and reactive to light accommodation. Eye muscles and extraocular movement intact. Sclera is anicteric. Neck; supple no lymphadenopathy, no thyromegaly or bruit Lungs: Normal respiratory rate/effort. Breath sounds bilateral equal and clear Heart: Normal rate. s1s2 normal. No rub or gallop. Extremities: 2+ edema. No varicose veins Neurological: Patient is alert, awake and oriented to person, place and time. No focal deficit. Strength bilateral appropriate and equal Skin: Warm and dry. Normal turgor. No rash. Palpitation: Normal elasticity for age Abdomen: Abdomen is soft. Bowel sounds +. There is no abdominal tenderness, no guarding/rigidity no organomegaly Psych: normal insight and normal affect/mood MSK: no joint tenderness or swelling. Digits and nails normal, no deformity : kidney or bladder not palpable Labs/imaging reviewed. Past medical history, past surgical history, family history, social history, allergy reviewed and noted as below Family hx: no hx of CKD. Rest non-contributory Objective - Vital Signs/Intake and Output Vital Signs (last 24 hours): Temp Pulse Resp BP Pulse Ox 97.9 F 18 L 100 H 152/82 H 97 12/13/17 06:00 12/13/17 06:00 12/13/17 06:00 12/13/17 10:18 12/13/17 11:54 Intake and Output: 12/13/17 12/13/17 06:59 18:59 Intake Total 300 Balance 300 - Medications Medications: Current Medications Albuterol/Ipratropium (Duoneb 3 Mg/0.5 Mg (3 Ml) Ud) 3 ml IH Q6H [facility] Last Admin: 12/13/17 07:27 Dose: 3 ml Albuterol/Ipratropium (Duoneb 3 Mg/0.5 Mg (3 Ml) Ud) 3 ml IH Q2 PRN PRN Reason: Shortness of Breath Last Admin: 12/12/17 11:53 Dose: 3 ml Apixaban (Eliquis) 2.5 mg PO BID [facility] Last Admin: 12/13/17 10:14 Dose: 2.5 mg Aspirin (Aspirin Chewable) 81 mg PO DAILY [facility] Last Admin: 12/13/17 10:14 Dose: 81 mg Cyclosporine (Sandimmune) 50 mg PO BID [facility] Last Admin: 12/13/17 10:11 Dose: 50 mg Doxycycline Hyclate (Doryx) 100 mg PO Q12 [facility] PRN Reason: Protocol Last Admin: 12/13/17 10:11 Dose: 100 mg Guaifenesin (Robitussin) 200 mg PO Q4H PRN PRN Reason: Cough and congestion Last Admin: 12/12/17 20:03 Dose: 200 mg Home Med (Home Med) 1 unit PO DAILY [facility] Last Admin: 12/13/17 10:17 Dose: 1 unit Ceftriaxone Sodium (Rocephin 1 Gram Ivpb) 1 gm in 100 mls @ 100 mls/hr IVPB DAILY [facility] PRN Reason: Protocol Stop: 12/15/17 10:59 Last Admin: 12/13/17 10:11 Dose: 100 mls/hr Insulin Human Regular (Humulin R Med) 0 units SC ACHS [facility] PRN Reason: Protocol Last Admin: 12/13/17 10:16 Dose: 5 units Metoprolol Tartrate (Lopressor) 100 mg PO Q12H [facility] Last Admin: 12/13/17 10:18 Dose: 100 mg Non-Formulary Medication (Sirolimus [Rapamune]) 1 mg PO DAILY [facility] Last Admin: 12/13/17 10:20 Dose: Not Given Ondansetron HCl (Zofran Inj) 4 mg IVP Q6H PRN PRN Reason: Nausea/Vomiting Prednisone (Prednisone Tab) 40 mg PO DAILY [facility] Last Admin: 12/13/17 10:12 Dose: 40 mg - Labs Labs: 12/13/17 07:00 12/13/17 07:00 PT 12.9 SECONDS (9.4-12.5) H 12/10/17 12:30 INR 1.12 (0.93-1.08) H 12/10/17 12:30 APTT 36.8 Seconds (25.1-36.5) H 12/10/17 12:30
--- NOTE | 2017-12-13 18:15 | PN ---
DATE: 12/13/2017 SUBJECTIVE: The patient is in bed, no acute distress, nontoxic. PHYSICAL EXAMINATION: VITAL SIGNS: Temperature is 98, blood pressure is 150/80, respiratory rate of 16. HEENT: Examination of HEENT is unremarkable. NECK: Supple. LUNGS: Have decreased breath sounds. HEART: Normal S1 and S2. ABDOMEN: Soft, nontender. LABORATORY DATA: Laboratory examination reveals the patient's white count of 16,000, hemoglobin 11. Chemistries reveals a creatinine of . Urinalysis is noted. Serology is reviewed. Microbiology reveals the patient to have the blood and urine cultures are negative. Nasal MRSA is negative. Dr. Lam's note is appreciated. ASSESSMENT AND PLAN: A 67-year-old with systemic inflammatory response syndrome, acute decompensated heart failure on top of chronic congestive heart failure on top of acute bronchitis. The patient was on a cruise ship. The patient with hypertension, kidney disease, dyslipidemia. Has had adequate antibiotic therapy with a negative procalcitonin. Cultures negative. Most likely, all consistent with congestive heart failure. Doing well. Drew Morris MD
--- NOTE | 2017-12-14 07:46 | DS ---
HISTORY OF PRESENT ILLNESS: She was on a cruise ship. She was here. She had a lot of issues. She was in acute kidney injury, CHF, SIRS, pneumonia, diabetes, atrial fibrillation, history of heart transplant, and at this point she is much improved with breathing, no chest pain. Her kidney functions are bit better, but she has to have it followed up when she goes home. She will be on the same medication of azithromycin 3 more days to make sure the infection is all gone, she is in good spirits, only thing she asks is to get her home, to [place], where she is from. PHYSICAL EXAMINATION: VITAL SIGNS: Temperature 98.4, 95 pulse, 147/90 blood pressure, 20 respiratory rate, 97% O2 sat on room air. HEENT: Head is atraumatic, normocephalic. HEART: Regular rate. LUNGS: Decreased breath sounds, but clear. ABDOMEN: Soft. EXTREMITIES: No edema, but weak. LABORATORY DATA: She has a 140 sodium, potassium 4.2, BUN 99, creatinine 2.6 with better GFR is 18, and blood sugar 231, calcium is 8.8, AST is 19, ALT is 26, alkaline phosphatase 92, total protein 6.1. White count 7-15.3 Solu-Medrol, now she is on prednisone. Hemoglobin is 11.4, hematocrit 35.6, platelets of 280. Pulmonary thinks she can improve with continued medication, so does Infectious Disease. Renal says at this time no treatment. We cleared her discharge today, medications, and hopefully she can go back to [place]; she is on a cruise ship. Navdeep Carvalho DO MTDD
== END 2017-12-13 14:07 | disposition home or self-care (01) | DRG 291 ==
LOC: ED 11:32 → ERH 14:08 → CCU 17:41 → 2RNO 12-11 12:55 → 5RSO 12-12 16:56
PROVIDERS: ADMIT Family Medicine; ATTEND Family Medicine
DX: I13.0 Hypertensive heart and chronic kidney disease with heart failure and stage 1 through stage 4 chronic kidney disease, or unspecified chronic kidney disease (principal); I50.33 Acute on chronic diastolic (congestive) heart failure; J18.9 Pneumonia, unspecified organism; N17.9 Acute kidney failure, unspecified; I45.2 Bifascicular block; N18.4 Chronic kidney disease, stage 4 (severe); J44.1 Chronic obstructive pulmonary disease with (acute) exacerbation; J44.0 Chronic obstructive pulmonary disease with (acute) lower respiratory infection; I25.811 Atherosclerosis of native coronary artery of transplanted heart without angina pectoris; Z94.1 Heart transplant status; J98.11 Atelectasis; I48.2 Chronic atrial fibrillation; E03.9 Hypothyroidism, unspecified; E11.22 Type 2 diabetes mellitus with diabetic chronic kidney disease; E11.65 Type 2 diabetes mellitus with hyperglycemia; J20.9 Acute bronchitis, unspecified; E86.0 Dehydration; E87.6 Hypokalemia; D63.1 Anemia in chronic kidney disease; G47.00 Insomnia, unspecified; E78.5 Hyperlipidemia, unspecified; I27.20 Pulmonary hypertension, unspecified; R26.81 Unsteadiness on feet; F32.9 Major depressive disorder, single episode, unspecified; E55.9 Vitamin D deficiency, unspecified; Z79.01 Long term (current) use of anticoagulants; Z79.82 Long term (current) use of aspirin; Z79.899 Other long term (current) drug therapy; Z87.891 Personal history of nicotine dependence; Z79.4 Long term (current) use of insulin